=== PATIENT | female | born 1975 | race Caucasian/White ===

== ENCOUNTER 2016-04-30 23:37 | Emergency (ER) | payer MEDICARE, OTHER ==
[2016-04-30] MEDS ORDERED: ASPIRIN 81 MG CHEW PO STA (23:43)
[2016-05-01 00:09] LABS: Basophils % (A) 1 %; CH 24.3; CHCM 31.1; Eosinophils # (A) 0.1 k/uL (0-0.7); Eosinophils % (A) 2 %; HCT 32.5 % (34.0-46.0); HDW 3.42; HGB 10.2 gm/dL (11.4-16.0); Hypochromasia Moderate; Luc # (Auto) 0.24; Luc % (Auto) 4; Lymphocytes # (A) 1.9 k/uL (1.0-4.8); Lymphocytes % (A) 31 %; MCH 24.6 pg (25.0-35.0); MCHC 31.4 g/dL (31.0-37.0); MCV 78.3 fL (80.0-100.0); Mean Platelet Volume 9.1; Monocytes # (A) 0.5 k/uL (0-1.0); Monocytes % (A) 8 %; Neutrophils # (A) 3.4 k/uL (1.3-7.7); Neutrophils % (A) 55 %; Poikilocytosis Slight; RBC 4.15 m/uL (3.80-5.40); RDW 14.9 % (11.5-15.5); WBC 6.2 k/uL (3.8-10.6); WBC (Perox) 6.42
[2016-05-01 00:17] LABS: ALT 36 U/L (9-52); AST 34 U/L (14-36); Alkaline Phosphatase 99 U/L (38-126); Amylase 30 U/L (30-110); Anion Gap 11 mmol/L; Blood Urea Nitrogen 11 mg/dL (7-17); Calcium 8.7 mg/dL (8.4-10.2); Carbon Dioxide 23 mmol/L (22-30); Chloride 107 mmol/L (98-107); Glucose 123 mg/dL (74-99); Magnesium 1.9 mg/dL (1.6-2.3); Non-African American GFR(MDRD) >60 (>60 ml/min/1.73 sqM); Sodium 141 mmol/L (137-145); Total Bilirubin 0.3 mg/dL (0.2-1.3)
[2016-05-01 00:23] LABS: INR 1.2 (<1.1); Partial Thromboplastin Time 23.3 sec (22.0-30.0); Prothrombin Time 11.5 sec (9.0-12.0)
[2016-05-01 00:29] LABS: Creatine Kinase 32 U/L (30-135)
--- NOTE | 2016-05-01 00:39 | XR ---
EXAM: XR Chest, 1 View. CLINICAL HISTORY: Reason: chest pain TECHNIQUE: Frontal view of the chest. COMPARISON: Comparison to 07/08/15. FINDINGS: Limitations: Overlying chest leads obscure portion of the upper chest Lungs: Patient's chin partly obscures the right lung apex. Pleural space: Unremarkable. No pneumothorax. Heart: Upper limits of normal cardiovascular silhouette likely accentuated by technique. Mediastinum: Unremarkable. Bones/joints: Unremarkable. Vasculature: Slight prominence of the central vasculature likely mild congestion. IMPRESSION: Suspect mild congestion. Upper limits of normal cardiovascular silhouette.
[2016-05-01 00:42] LABS: Creatine Kinase MB <0.2 ng/mL (0.0-2.4); Troponin I <0.012 ng/mL (0.000-0.034)
[2016-05-01] MEDS ORDERED: HYDROcodone/APAP 5-325MG 1 EACH TAB PO STA (00:49)
--- NOTE | 2016-05-01 02:09 | ED ---
Chest Pain HPI - General Chief Complaint: Chest Pain Stated Complaint: Chest Pain Time Seen by Provider: 04/30/16 23:40 Source: patient, EMS Mode of arrival: ambulatory Limitations: no limitations - History of Present Illness MD Complaint: chest pain -: hour(s) Onset: during rest Pain Location: substernal, epigastric Pain Radiation: none Severity: moderate Quality: tightness Consistency: constant Improves With: nothing Worsens With: nothing Treatments Prior to Arrival: none - Related Data Home Medications Medication Instructions Recorded Confirmed FLUoxetine HCL [PROzac] 40 mg PO DAILY 07/08/15 05/01/16 Lurasidone HCl [Latuda] 120 mg PO HS 07/08/15 04/30/16 Propranolol LA [Inderal LA] 120 mg PO DAILY 07/08/15 05/01/16 Ranitidine HCl [Zantac] 150 mg PO BID 07/08/15 05/01/16 Simvastatin [Zocor] 20 mg PO HS 07/08/15 05/01/16 metFORMIN HCL [Glucophage] 500 mg PO BID 07/08/15 05/01/16 rOPINIRole HCL [Requip] 1 mg PO HS 07/08/15 04/30/16 traZODone HCL [Desyrel] 200 mg PO HS 07/08/15 04/30/16 Cholecalciferol [Vitamin D3] 400 unit PO DAILY@1200 04/30/16 05/01/16 Dicyclomine [Bentyl] 20 mg PO QID 04/30/16 05/01/16 Promethazine [Phenergan] 25 mg PO Q6HR 04/30/16 05/01/16 diphenhydrAMINE [Benadryl] 25 mg PO BID PRN 04/30/16 04/30/16 Allergies Allergy/AdvReac Type Severity Reaction Status Date / Time sulfamethoxazole Allergy Rash/Hives Verified 04/30/16 23:43 [From Bactrim] trimethoprim [From Bactrim] Allergy Rash/Hives Verified 04/30/16 23:43 ibuprofen [From Motrin] AdvReac Gastric Verified 04/30/16 23:43 Bypass Surgery Review of Systems ROS Statement: Those systems with pertinent positive or pertinent negative responses have been documented in the HPI. ROS Other: All systems not noted in ROS Statement are negative. Constitutional: Denies: fever, chills Respiratory: Denies: cough, dyspnea, wheezes Cardiovascular: Reports: chest pain. Denies: palpitations, dyspnea on exertion , orthopnea, edema, syncope Gastrointestinal: Reports: abdominal pain. Denies: nausea, vomiting, melena, hematochezia Genitourinary: Denies: dysuria, hematuria Musculoskeletal: Denies: back pain Skin: Denies: rash Neurological: Denies: headache, weakness, numbness EKG Findings - EKG Results: EKG: interpreted by ANTHONY DESIR, sinus rhythm (Rate 63 bpm), normal axis, normal QRS, normal ST/T, no acute changes Past Medical History Past Medical History: Diabetes Mellitus, Hyperlipidemia, Hypertension Additional Past Medical History / Comment(s): abd pain, gastritis History of Any Multi-Drug Resistant Organisms: MRSA Date of last positivie culture/infection: 2011 in abdominal incision from RYGB MDRO Source:: patient Past Surgical History: Section, Cholecystectomy, Hysterectomy, Orthopedic Surgery, Tonsillectomy, Tubal Ligation Additional Past Surgical History / Comment(s): knee replacement bilateral, gastric bypass, bilateral carpal tunnel surgery Past Anesthesia/Blood Transfusion Reactions: No Reported Reaction Past Psychological History: Anxiety, Bipolar, Depression Smoking Status: Never smoker Past Alcohol Use History: None Reported Past Drug Use History: None Reported - Past Family History Father Family Medical History: Unable to Obtain General Exam Limitations: no limitations General appearance: alert, in no apparent distress, obese Head exam: Present: atraumatic, normocephalic Eye exam: Present: normal appearance. Absent: scleral icterus, conjunctival injection Neck exam: Present: normal inspection Respiratory exam: Present: normal lung sounds bilaterally. Absent: respiratory distress, wheezes, rales, rhonchi, stridor Cardiovascular Exam: Present: regular rate, normal rhythm, normal heart sounds. Absent: systolic murmur, diastolic murmur, rubs, gallop GI/Abdominal exam: Present: soft, tenderness (There is mild epigastric tenderness, no rebound or guarding). Absent: distended, guarding, rebound, mass Extremities exam: Present: normal inspection, normal capillary refill. Absent: pedal edema, calf tenderness Back exam: Present: normal inspection. Absent: CVA tenderness (R), CVA tenderness (L) Neurological exam: Present: alert Skin exam: Present: warm, dry, intact, normal color. Absent: rash, cyanosis, diaphoretic, erythema, petechiae, pallor, mottled Course Vital Signs 04/30/16 23:41 Temperature 98.8 F Pulse Rate 64 Respiratory 20 Rate Blood Pressure 140/87 O2 Sat by Pulse 99 Oximetry Disposition Clinical Impression: Chest pain Disposition: HOME SELF-CARE Condition: Good Instructions: Chest Pain (ED) Referrals: None,Stated [Primary Care Provider] - 1-2 days
[2016-05-01 02:23] VITALS: BP 129/78; PULSE 66; RESP 18; TEMP 97.8
== END 2016-05-01 02:23 | disposition home or self-care (01) ==
LOC: EC 23:37
DX: R07.9 Chest pain, unspecified (principal); R10.13 Epigastric pain; I10 Essential (primary) hypertension; E78.5 Hyperlipidemia, unspecified; E11.9 Type 2 diabetes mellitus without complications; F31.9 Bipolar disorder, unspecified; F41.9 Anxiety disorder, unspecified; Z79.84 Long term (current) use of oral hypoglycemic drugs; Z79.899 Other long term (current) drug therapy; Z88.1 Allergy status to other antibiotic agents; Z88.2 Allergy status to sulfonamides; Z86.14 Personal history of Methicillin resistant Staphylococcus aureus infection; Z87.19 Personal history of other diseases of the digestive system
CPT/HCPCS: 36415; 71010; 80053; 82150; 82550; 82553; 83690; 83735; 84484; 85025; 85379; 85610; 85730; 93005; 99285

== ENCOUNTER 2020-08-12 02:02 | Observation (INO) | payer MEDICARE, OTHER ==
[2020-08-12 02:12] LABS: Glucose,Whole Blood 251 mg/dL (75-99)
[2020-08-12] MEDS ORDERED: SODIUM CHLORIDE 0.9% 1,000 ML IV STA (02:14)
--- NOTE | 2020-08-12 02:26 | ED ---
Chest Pain HPI - General Chief Complaint: Chest Pain Stated Complaint: Chest pain Time Seen by Provider: 08/12/20 02:07 Source: patient Mode of arrival: ambulatory Limitations: no limitations - History of Present Illness MD Complaint: chest pain Onset/Timin -: hour(s) Onset: during rest Pain Location: substernal, left chest Pain Radiation: LUE Severity: mild Quality: sharp Consistency: constant Improves With: nothing Worsens With: nothing Treatments Prior to Arrival: none - Related Data Home Medications Medication Instructions Recorded Confirmed Lurasidone HCl [Latuda] 120 mg PO HS 07/08/15 08/12/20 rOPINIRole HCL [Requip] 1 mg PO HS 07/08/15 08/12/20 traZODone HCL [Desyrel] 100 mg PO HS 07/08/15 08/12/20 diphenhydrAMINE [Benadryl] 50 mg PO BID 04/30/16 08/12/20 DULoxetine HCL [Cymbalta] 60 mg PO DAILY 08/12/20 08/12/20 Empagliflozin [Jardiance] 25 mg PO DAILY 08/12/20 08/12/20 Fexofenadine HCl [Kandi Allergy] 180 mg PO DAILY 08/12/20 08/12/20 Insulin Degludec [Tresiba 35 units SQ HS 08/12/20 08/12/20 Flextouch U-100] Isosorbide Mononitrate ER [Imdur] 30 mg PO DAILY 08/12/20 08/12/20 Levothyroxine Sodium [Synthroid] 50 mcg PO DAILY 08/12/20 08/12/20 Ozempic 2mg/1.5ml 0.5 mg SQ 08/12/20 08/12/20 Pantoprazole Sodium [Protonix] 40 mg PO DAILY 08/12/20 08/12/20 Pregabalin [Lyrica] 150 mg PO BID 08/12/20 08/12/20 Simvastatin [Zocor] 40 mg PO HS 08/12/20 08/12/20 Topiramate [Topamax] 75 mg PO BID 08/12/20 08/12/20 busPIRone HCL [Buspar] 10 mg PO TID 08/12/20 08/12/20 hydrOXYzine pamoate [Vistaril] 50 mg PO BID 08/12/20 08/12/20 metFORMIN HCL [metFORMIN HCL ER] 750 mg PO BID-W/MEALS 08/12/20 08/12/20 tiZANidine HCL [Zanaflex] 2 mg PO Q8H PRN 08/12/20 08/12/20 Allergies Allergy/AdvReac Type Severity Reaction Status Date / Time sulfamethoxazole Allergy Rash/Hives Verified 08/12/20 09:50 [From Bactrim] trimethoprim [From Bactrim] Allergy Rash/Hives Verified 08/12/20 09:50 ibuprofen [From Motrin] AdvReac Gastric Verified 08/12/20 09:50 Bypass Surgery Review of Systems ROS Statement: Those systems with pertinent positive or pertinent negative responses have been documented in the HPI. ROS Other: All systems not noted in ROS Statement are negative. Constitutional: Denies: fever, chills Respiratory: Denies: cough, dyspnea, wheezes, hemoptysis Cardiovascular: Reports: chest pain. Denies: palpitations, orthopnea, edema, syncope Gastrointestinal: Denies: abdominal pain, nausea, vomiting, diarrhea Genitourinary: Denies: dysuria, hematuria Musculoskeletal: Denies: back pain Skin: Denies: rash Neurological: Denies: headache, weakness Psychiatric: Reports: anxiety EKG Findings - EKG Results: EKG: interpreted by KARLEE, sinus rhythm (Rate 97 bpm), normal axis, normal QRS, normal ST/T Past Medical History Past Medical History: Heart Failure, Diabetes Mellitus, Hyperlipidemia, Hypertension Additional Past Medical History / Comment(s): abd pain, gastritis History of Any Multi-Drug Resistant Organisms: MRSA Date of last positivie culture/infection: 2011 in abdominal incision from RYGB MDRO Source:: patient Past Surgical History: Section, Cholecystectomy, Hysterectomy, Orthopedic Surgery, Tonsillectomy, Tubal Ligation Additional Past Surgical History / Comment(s): knee replacement bilateral, gastric bypass, bilateral carpal tunnel surgery Past Anesthesia/Blood Transfusion Reactions: No Reported Reaction Past Psychological History: Anxiety, Bipolar, Depression Smoking Status: Never smoker Past Alcohol Use History: None Reported Past Drug Use History: None Reported - Past Family History Father Family Medical History: Unable to Obtain General Exam Limitations: no limitations General appearance: alert, in no apparent distress Head exam: Present: atraumatic, normocephalic Eye exam: Present: normal appearance. Absent: scleral icterus, conjunctival injection ENT exam: Present: normal oropharynx Neck exam: Present: normal inspection Respiratory exam: Present: normal lung sounds bilaterally. Absent: respiratory distress, wheezes, rales, rhonchi, stridor Cardiovascular Exam: Present: regular rate, normal rhythm, normal heart sounds. Absent: systolic murmur, diastolic murmur, rubs, gallop GI/Abdominal exam: Present: soft. Absent: distended, tenderness, guarding, rebound, rigid, mass Extremities exam: Present: normal inspection, normal capillary refill. Absent: pedal edema, calf tenderness Back exam: Present: normal inspection. Absent: CVA tenderness (R), CVA tenderness (L) Neurological exam: Present: alert Skin exam: Present: warm, dry, intact, normal color. Absent: rash Course Vital Signs 08/12/20 08/12/20 08/12/20 02:08 05:00 09:25 Temperature 98.7 F 98.2 F Pulse Rate 97 85 82 Respiratory 18 18 18 Rate Blood Pressure 123/59 130/90 126/90 O2 Sat by Pulse 98 97 97 Oximetry 08/12/20 08/12/20 14:39 17:58 Temperature Pulse Rate 80 66 Respiratory 18 18 Rate Blood Pressure 135/88 126/95 O2 Sat by Pulse 98 99 Oximetry Disposition Clinical Impression: Chest pain, Hyperglycemia Disposition: ADMITTED IP TO THIS HOSP Condition: Good Is patient prescribed a controlled substance at d/c from ED?: No
[2020-08-12 02:37] LABS: Anisocytosis Slight; Basophils # (A) 0.1 k/uL (0-0.2); Basophils % (A) 1 %; Eosinophils # (A) 0.3 k/uL (0-0.7); Eosinophils % (A) 3 %; HGB 12.1 gm/dL (11.4-16.0); Hypochromasia Moderate; Lymphocytes # (A) 2.1 k/uL (1.0-4.8); Lymphocytes % (A) 25 %; MCH 23.5 pg (25.0-35.0); MCHC 31.7 g/dL (31.0-37.0); MCV 74.1 fL (80.0-100.0); Microcytosis Moderate; Monocytes # (A) 0.7 k/uL (0-1.0); Monocytes % (A) 8 %; Neutrophils # (A) 5.2 k/uL (1.3-7.7); Neutrophils % (A) 61 %; Platelet Count 289 k/uL (150-450); Poikilocytosis Slight; RBC 5.13 m/uL (3.80-5.40); RDW 18.6 % (11.5-15.5); WBC 8.6 k/uL (3.8-10.6)
[2020-08-12 02:47] LABS: Albumin 4.4 g/dL (3.5-5.0); Calcium 9.5 mg/dL (8.4-10.2); Magnesium 1.6 mg/dL (1.6-2.3); Potassium 3.6 mmol/L (3.5-5.1); Total Bilirubin 0.2 mg/dL (0.2-1.3); Total Protein 7.6 g/dL (6.3-8.2)
[2020-08-12 03:26] LABS: Partial Thromboplastin Time 22.2 sec (22.0-30.0); Prothrombin Time 10.8 sec (9.0-12.0)
--- NOTE | 2020-08-12 03:39 | XR ---
EXAM: XR Chest, 2 Views CLINICAL HISTORY: ITS.REASON XR Reason: Chest Pain TECHNIQUE: Frontal and lateral views of the chest. COMPARISON: 05/01/2016) FINDINGS: Lungs: Subtle increased density posteriorly on the lateral projection is not clearly evident on the frontal projection. The lungs are otherwise clear. The pulmonary vasculature demonstrates no significant radiographic abnormality. Pleural space: Unremarkable. No pneumothorax. No large pleural effusion. Heart: Unremarkable. No cardiomegaly. Mediastinum: Unremarkable. No significant abnormality identified. The trachea is midline. Bones/joints: Unremarkable. IMPRESSION: Subtle increased density posteriorly on the lateral projection is not clearly evident on the frontal projection. Suspect right basilar atelectasis or subtle infection. No pleural effusion or pneumothorax.
[2020-08-12] MEDS ORDERED: SODIUM CHLORIDE 0.9% 500 ML 500 ML IV STA (03:41)
[2020-08-12] MEDS ORDERED: INSULIN REGULAR 100 UNIT/ML VIAL (IV) SQ STA (03:41)
[2020-08-12] MEDS ORDERED: HYDROcodone/APAP 5-325MG 1 EACH TAB PO STA (03:42)
[2020-08-12] MEDS ORDERED: MORPHINE SULFATE 4 MG/ML SYRINGE IV STA (05:03)
[2020-08-12] MEDS ORDERED: NITROGLYCERIN SL TABS 0.4 MG TAB SUBLINGUAL PRN (06:16)
[2020-08-12] MEDS: SODIUM CHLORIDE 0.9% 1,000 ML IV SCH (06:52)
[2020-08-12] MEDS ORDERED: FAMOTIDINE 20 MG/2 ML VIAL IV SCH (09:00)
[2020-08-12] MEDS: PROPRANOLOL LA 60 MG CAP.SA.24H PO SCH (09:24)
[2020-08-12] MEDS: metFORMIN 500 MG TAB PO SCH ×2 (09:24→18:05)
[2020-08-12] MEDS: FLUoxetine HCL 20 MG CAP PO SCH (09:24)
[2020-08-12] MEDS: HEPARIN SODIUM,PORCINE/PF 5,000 UNIT/0.5 ML SYRINGE SQ SCH ×2 (09:24→22:14)
[2020-08-12] MEDS: DICYCLOMINE 20 MG TAB PO SCH ×4 (09:24→22:15)
[2020-08-12] MEDS: HYDROcodone/APAP 5-325MG 1 EACH TAB PO PRN ×3 (13:37→22:15)
[2020-08-12] MEDS: PROMETHAZINE 25 MG TAB PO SCH ×2 (13:38→18:06)
[2020-08-12] MEDS: CHOLECALCIFEROL 10 MCG (400 IU) TABLET PO SCH (13:38)
[2020-08-12 13:43] LABS: Glucose,Whole Blood 250 mg/dL (75-99)
[2020-08-12] MEDS ORDERED: tiZANidine 4 MG TAB PO PRN (14:59)
[2020-08-12] MEDS ORDERED: OZEMPIC SQ SCH (15:00)
--- NOTE | 2020-08-12 15:06 | P.HPIM ---
History of Present Illness 45-year-old female came in with complaints of severe 9/10 substernal and left- sided pressure-like and sharp chest pain started today morning continues to have chest pain without any aggravating relieving factors patient was complaining of lightheadedness as well as nausea. Patient denied any fever chills patient chest pain is radiating to the left arm. Patient just pain is non-micturitional not associated with food, nonpleuritic in nature. Patient EKG showed sinus rhythm troponins were negative. Patient had a stress test 2 years ago which was within normal limits. Patient denied any family history of coronary artery dise ase in first-degree family members but her grandfather did have myocardial infarction his 50s Review of Systems REVIEW OF SYSTEMS: CONSTITUTIONAL: No fever, no malaise, no fatigue. HEENT: No recent visual problems or hearing problems. Denied any sore throat. CARDIOVASCULAR: No orthopnea, PND, no palpitations, no syncope. PULMONARY: No shortness of breath, no cough, no hemoptysis. GASTROINTESTINAL: No diarrhea, no nausea, no vomiting, no abdominal pain. NEUROLOGICAL: No headaches, no weakness, no numbness. HEMATOLOGICAL: Denies any bleeding or petechiae. GENITOURINARY: Denies any burning micturition, frequency, or urgency. MUSCULOSKELETAL/RHEUMATOLOGICAL: Denies any joint pain, swelling, or any muscle pain. ENDOCRINE: Denies any polyuria or polydipsia. The rest of the 14-point review of systems is negative. Past Medical History Past Medical History: Heart Failure, Diabetes Mellitus, Hyperlipidemia, Hypert ension Additional Past Medical History / Comment(s): abd pain, gastritis History of Any Multi-Drug Resistant Organisms: MRSA Date of last positivie culture/infection: 2011 in abdominal incision from RYGB MDRO Source:: patient Past Surgical History: Section, Cholecystectomy, Hysterectomy, Orthopedic Surgery, Tonsillectomy, Tubal Ligation Additional Past Surgical History / Comment(s): knee replacement bilateral, gastric bypass, bilateral carpal tunnel surgery Past Anesthesia/Blood Transfusion Reactions: No Reported Reaction Past Psychological History: Anxiety, Bipolar, Depression Smoking Status: Never smoker Past Alcohol Use History: None Reported Past Drug Use History: None Reported - Past Family History Father Family Medical History: Unable to Obtain Medications and Allergies Home Medications Medication Instructions Recorded Confirmed Type Lurasidone HCl [Latuda] 120 mg PO HS 07/08/15 08/12/20 History rOPINIRole HCL [Requip] 1 mg PO HS 07/08/15 08/12/20 History traZODone HCL [Desyrel] 100 mg PO HS 07/08/15 08/12/20 History diphenhydrAMINE [Benadryl] 50 mg PO BID 04/30/16 08/12/20 History DULoxetine HCL [Cymbalta] 60 mg PO DAILY 08/12/20 08/12/20 History Empagliflozin [Jardiance] 25 mg PO DAILY 08/12/20 08/12/20 History Fexofenadine HCl [Kandi Allergy] 180 mg PO DAILY 08/12/20 08/12/20 History Insulin Degludec [Tresiba 35 units SQ HS 08/12/20 08/12/20 History Flextouch U-100] Isosorbide Mononitrate ER [Imdur] 30 mg PO DAILY 08/12/20 08/12/20 History Levothyroxine Sodium [Synthroid] 50 mcg PO DAILY 08/12/20 08/12/20 History Ozempic 2mg/1.5ml 0.5 mg SQ SA 08/12/20 08/12/20 History Pantoprazole Sodium [Protonix] 40 mg PO DAILY 08/12/20 08/12/20 History Pregabalin [Lyrica] 150 mg PO BID 08/12/20 08/12/20 History Simvastatin [Zocor] 40 mg PO HS 08/12/20 08/12/20 History Topiramate [Topamax] 75 mg PO BID 08/12/20 08/12/20 History busPIRone HCL [Buspar] 10 mg PO TID 08/12/20 08/12/20 History hydrOXYzine pamoate [Vistaril] 50 mg PO BID 08/12/20 08/12/20 History metFORMIN HCL [metFORMIN HCL ER] 750 mg PO BID-W/MEALS 08/12/20 08/12/20 History tiZANidine HCL [Zanaflex] 2 mg PO Q8H PRN 08/12/20 08/12/20 History Allergies Allergy/AdvReac Type Severity Reaction Status Date / Time sulfamethoxazole Allergy Rash/Hives Verified 08/12/20 09:50 [From Bactrim] trimethoprim [From Bactrim] Allergy Rash/Hives Verified 08/12/20 09:50 ibuprofen [From Motrin] AdvReac Gastric Verified 08/12/20 09:50 Bypass Surgery Physical Exam Vitals: Vital Signs Temp Pulse Resp BP Pulse Ox 08/12/20 14:39 80 18 135/88 98 08/12/20 09:25 98.2 F 82 18 126/90 97 08/12/20 05:00 85 18 130/90 97 08/12/20 02:08 98.7 F 97 18 123/59 98 Intake and Output 08/11/20 08/12/20 08/12/20 22:59 06:59 14:59 Other: Weight 151.5 kg PHYSICAL EXAMINATION: GENERAL: The patient is alert and oriented x3, not in any acute distress. Obese HEENT: Pupils are round and equally reacting to light. EOMI. No scleral icterus. No conjunctival pallor. Normocephalic, atraumatic. No pharyngeal erythema. No thyromegaly. CARDIOVASCULAR: S1 and S2 present. No murmurs, rubs, or gallops. PULMONARY: Chest is clear to auscultation, no wheezing or crackles. ABDOMEN: Soft, nontender, nondistended, normoactive bowel sounds. No palpable organomegaly. MUSCULOSKELETAL: No joint swelling or deformity. EXTREMITIES: No cyanosis, clubbing, or pedal edema. NEUROLOGICAL: Gross neurological examination did not reveal any focal deficits. SKIN: No rashes. Results CBC & Chem 7: 08/12/20 02:28 08/12/20 02:28 Labs: Abnormal Lab Results - Last 24 Hours (Table) 08/12/20 08/12/20 08/12/20 Range/Units 02:10 02:28 02:28 MCV 74.1 L (80.0-100.0) fL MCH 23.5 L (25.0-35.0) pg RDW 18.6 H (11.5-15.5) % Glucose 247 H (74-99) mg/dL POC Glucose (mg/dL) 251 H (75-99) mg/dL Alkaline Phosphatase 130 H (38-126) U/L 08/12/20 Range/Units 13:41 MCV (80.0-100.0) fL MCH (25.0-35.0) pg RDW (11.5-15.5) % Glucose (74-99) mg/dL POC Glucose (mg/dL) 250 H (75-99) mg/dL Alkaline Phosphatase (38-126) U/L Assessment and Plan Plan: Chest pain: We'll rule out acute coronary syndromes cardiology evaluated the patient. It appears that she would undergo stress test on Friday. -Type 2 diabetes mellitus: Patient will be resumed on home regimen along with sliding scale hold off on metformin - hyperlipidemia -Hypertension -Depression and bipolar disorder -Diabetic peripheral neuropathy -Obesity -Gastroesophageal reflux disease
--- NOTE | 2020-08-12 15:59 | CONS ---
CONSULTATION Mrs. Swanson is a 45-year-old female who moved back to our area from [place], has a history of diabetes mellitus, history of hyperlipidemia, who presented with chest discomfort that occurred at rest, started yesterday and has persisted. The discomfort has traveled to her arms. In 2014 while in [place] she underwent a stress test and subsequent cardiac catheterization and was told that there is no evidence of obstructive coronary artery disease. She was here in 2016 and at that time had a stress test that was nondiagnostic. The patient is not active physically. Has exertional dyspnea on exertion. She has not been smoking since her 20s. She denies any palpitation. No syncope. No clear PND or orthopnea. Her coronary risk factors are remarkable for borderline hypertension, hyperlipidemia, diabetes, MEDICATION: Include Jardiance, Requip, Desyrel, BuSpar, Vistaril, Topamax, simvastatin 40 mg daily, Cymbalta, metformin 750 mg twice a day, isosorbide mononitrate 30 mg daily, Lyrica, Latuda and Synthroid. REVIEW OF SYSTEMS: RESPIRATORY SYSTEM: She has dyspnea on exertion. No recent wheezing or cough. GI SYSTEM: No recent GI bleeding. No peptic ulcer disease. SYSTEM: No dysuria or hematuria. NERVOUS SYSTEM: No history of stroke or seizure. PHYSICAL EXAMINATION: GENERAL: She is a 45-year-old female, alert, oriented, no apparent distress, obese. VITAL SIGNS: Blood pressure 126/90 with a heart rate in the 80s. HEAD: Normocephalic. Eyes sclerae anicteric. NECK: Good carotid upstroke, no bruit, no jugular venous distention. LUNGS: Clear to auscultation. HEART: Regular rate and rhythm S1, S2. No S3. No S4. No rub. ABDOMEN: Soft and nontender. Positive bowel sounds. No organomegaly. EXTREMITIES: No edema. Intact pulses. LAB DATA: Lab data revealed troponin less than 0.012. BUN and creatinine 7 and 0.92, potassium 3.6, hemoglobin of 12.1. IMPRESSION: 1. Chest discomfort of unclear etiology. No evidence of acute coronary artery syndrome. 2. History of diabetes mellitus. 3. History of hyperlipidemia. 4. Borderline hypertension. 5. Obesity. RECOMMENDATION: From the cardiac standpoint, I will obtain echocardiogram with Doppler to evaluate left ventricular systolic function and depending on her progress, we may proceed with a dobutamine stress echocardiogram to further assess her status and guide her treatment. Thank you for this consult. We will follow with you. JANIEL / IJN: [id number] /
[2020-08-12] MEDS: busPIRone HCl 10 MG TAB PO SCH ×2 (18:05→22:16)
[2020-08-12 19:59] LABS: Glucose,Whole Blood 171 mg/dL (75-99)
[2020-08-12] MEDS ORDERED: ATORVASTATIN 10 MG TAB PO SCH (21:00)
[2020-08-12] MEDS: INSULIN DETEMIR (LEVEMIR) 100 UNIT/ML SYR SQ SCH (21:29)
[2020-08-12] MEDS: TOPIRAMATE 25 MG TAB PO SCH (21:30)
[2020-08-12] MEDS: traZODone HCL 100 MG TAB PO SCH (21:30)
[2020-08-12] MEDS: PREGABALIN 75 MG CAP PO SCH (22:15)
[2020-08-12] MEDS: FAMOTIDINE 20 MG TAB PO SCH (22:16)
[2020-08-12] MEDS: ATORVASTATIN 20 MG TAB PO SCH (22:16)
[2020-08-12 22:52] LABS: Glucose,Whole Blood 193 mg/dL (75-99)
[2020-08-12] MEDS ORDERED: MORPHINE SULFATE 4 MG/ML SYRINGE IVP STA (23:40)
[2020-08-12 23:42] LABS: Chol/HDL Ratio 5.03
[2020-08-13] MEDS: LURASIDONE 40 MG TAB PO SCH ×2 (00:02→21:44)
[2020-08-13] MEDS: PROMETHAZINE 25 MG TAB PO SCH ×5 (00:57→23:20)
[2020-08-13] MEDS: HYDROcodone/APAP 5-325MG 1 EACH TAB PO PRN ×5 (02:22→23:20)
[2020-08-13] MEDS: LEVOTHYROXINE 50 MCG TAB PO SCH (06:05)
[2020-08-13 07:22] LABS: Glucose,Whole Blood 178 mg/dL (75-99)
[2020-08-13] MEDS: SODIUM CHLORIDE 0.9% 1,000 ML IV SCH (07:37)
[2020-08-13 07:42] LABS: Potassium 3.9 mmol/L (3.5-5.1)
[2020-08-13 07:43] LABS: African American GFR (CKD) >90 (>60 ml/min/1.73 sqM); Anion Gap 6 mmol/L; Blood Urea Nitrogen 8 mg/dL (7-17); Calcium 8.6 mg/dL (8.4-10.2); Carbon Dioxide 24 mmol/L (22-30); Chloride 109 mmol/L (98-107); Glucose 161 mg/dL (74-99); Non-African American GFR(CKD) >90 (>60 ml/min/1.73 sqM); Sodium 139 mmol/L (137-145)
[2020-08-13] MEDS: ENOXAPARIN 40 MG/0.4 ML SYRINGE SQ SCH (07:50)
[2020-08-13] MEDS: PROPRANOLOL LA 60 MG CAP.SA.24H PO SCH (07:50)
[2020-08-13] MEDS: CHOLECALCIFEROL 10 MCG (400 IU) TABLET PO SCH (07:50)
[2020-08-13] MEDS: LORATADINE 10 MG TAB PO SCH (07:51)
[2020-08-13] MEDS: ASPIRIN 325 MG TAB PO SCH (07:51)
[2020-08-13] MEDS: DULoxetine HCL 60 MG CAPSULE.DR PO SCH (07:52)
[2020-08-13] MEDS: DICYCLOMINE 20 MG TAB PO SCH ×4 (07:52→21:44)
[2020-08-13] MEDS: FAMOTIDINE 20 MG TAB PO SCH (07:52)
[2020-08-13] MEDS: ISOSORBIDE MONONITRATE ER 30 MG TAB.ER.24H PO SCH (07:52)
[2020-08-13] MEDS: PANTOPRAZOLE 40 MG TABLET PO SCH (07:52)
[2020-08-13] MEDS: FLUoxetine HCL 20 MG CAP PO SCH (07:53)
[2020-08-13] MEDS: PREGABALIN 75 MG CAP PO SCH ×2 (07:53→21:44)
[2020-08-13] MEDS: busPIRone HCl 10 MG TAB PO SCH ×3 (07:53→21:44)
[2020-08-13] MEDS: TOPIRAMATE 25 MG TAB PO SCH ×2 (07:53→21:44)
[2020-08-13] MEDS: metFORMIN 500 MG TAB PO SCH ×2 (07:53→17:14)
[2020-08-13] MEDS: NON FORMULARY DRUG (Empagliflozin [Jardiance] 25 MG Tablet) PO SCH (07:54)
--- NOTE | 2020-08-13 11:08 | P.PN ---
Subjective Progress Note Date: 08/13/20 This is a pleasant 45-year-old female who recently moved back to this area from [place]. She has a history of diabetes, hyperlipidemia. She presented with chest discomfort that occurred at rest. It started on 08/11/2020 and has persisted. The discomfort has traveled into her back and her arms. Patient does have a history of a stress test in the past in 2014 at which time she subsequently underwent cardiac catheterization and was told that there was no evidence of obstructive CAD. She was here in 2016 and at that time had a stress test that was nondiagnostic. She is not very active physically. She has exertional dyspnea. She quit smoking in her 20s. Chest x-ray on admission showed subtle increased density posteriorly on the lateral projection that is not clearly evident on the frontal projection, suspect right basilar atelectasis or subtle infection, no pleural effusion or pneumothorax. EKG on admission showed baseline artifact but no clear evidence of ischemic changes. Opponens are negative 3. Lipids show triglycerides 424 and total cholesterol 201, LDL was not calculated due to elevated triglycerides. Patient was seen and examined this morning resting comfortably in bed. She does not appear to have any obvious signs of distress. She continues to complain of chest back and arm discomfort that is constant. She also complains of some mild nausea at times. Also complaining of some palpitations. She denies any dizziness. Complains of dyspnea on exertion. Vital signs are stable. She is currently on Lipitor 20 mg by mouth daily at bedtime, aspirin 325 mg by mouth daily, isosorbide 30 mg by mouth daily, Synthroid, Levemir, Lovenox, Cymbalta, metformin, Latuda, Jardiance, Ozempic, Protonix, Inderal, Topamax, Desyrel, Royal and Zanaflex. She is asking for pain medication "stronger than Royal". Objective - Vital Signs Vital signs: Vital Signs Temp 97.7 F 08/13/20 08:36 Pulse 59 L 08/13/20 08:36 Resp 18 08/13/20 08:36 BP 98/64 08/13/20 08:36 Pulse Ox 96 08/13/20 08:36 Intake & Output 08/12/20 08/13/20 08/13/20 18:59 06:59 18:59 Weight 151.5 kg Other: Voiding Method Toilet Toilet # Voids 3 - Exam PHYSICAL EXAMINATION: HEENT: Head is atraumatic, normocephalic. Pupils equal, round. Neck is supple. There is no elevated jugular venous pressure. HEART EXAMINATION: Heart sounds regular, S1 and S2 normal. No murmur or gallop heard. CHEST EXAMINATION: Lungs are clear to auscultation and precussion. No chest wall tenderness is noted on palpation or with deep breathing. ABDOMEN: Soft, obese, nontender. Bowel sounds are heard. No organomegaly noted. EXTREMITIES: 2+ peripheral pulses with no evidence of peripheral edema and no calf tenderness noted. NEUROLOGIC patient is awake, alert and oriented x3. . - Labs CBC & Chem 7: 08/12/20 02:28 08/13/20 06:50 Labs: Abnormal Lab Results - Last 24 Hours (Table) 08/12/20 08/12/20 08/12/20 Range/Units 02:28 13:41 19:58 Chloride (98-107) mmol/L Glucose (74-99) mg/dL POC Glucose (mg/dL) 250 H 171 H (75-99) mg/dL Triglycerides 424.0 H (0.0-149.0) mg/dL Cholesterol 201 H (0-200) mg/dL 08/12/20 08/13/20 08/13/20 Range/Units 22:50 06:50 07:20 Chloride 109 H (98-107) mmol/L Glucose 161 H (74-99) mg/dL POC Glucose (mg/dL) 193 H 178 H (75-99) mg/dL Triglycerides (0.0-149.0) mg/dL Cholesterol (0-200) mg/dL Assessment and Plan Assessment: 1 chest discomfort of unclear etiology, no evidence of acute coronary syndrome #2 history of diabetes mellitus #3 dyslipidemia #4 borderline hypertension #5 obesity Plan: From cardiology's perspective will obtain a 2-D echo with Doppler to assess cardiac structure and function as well as a dobutamine stress echocardiogram to further assess for underlying ischemia. Further recommendations to follow. DRUPAL PROGRAMMER note has been reviewed, I agree with a documented findings and plan of care. Patient was seen and examined.
[2020-08-13 11:39] LABS: Glucose,Whole Blood 247 mg/dL (75-99)
--- NOTE | 2020-08-13 12:25 | P.PN ---
Subjective Patient given with chest pain. Will undergo stress test tomorrow still complaining of chest pain. Constitutional: Denied any fatigue denied any fever. Cardio vascular: As mentioned in the interval history Gastrointestinal denied any nausea vomiting Pulmonary: Denied any shortness of breath cough Neurologic denied any new focal deficits All inpatient medications were reviewed and appropriate changes in these medications as dictated in the interval history and assessment and plan. Objective - Vital Signs Vital signs: Vital Signs Temp 97.7 F 08/13/20 08:36 Pulse 59 L 08/13/20 08:36 Resp 18 08/13/20 08:36 BP 98/64 08/13/20 08:36 Pulse Ox 96 08/13/20 08:36 Intake & Output 08/12/20 08/13/20 08/13/20 18:59 06:59 18:59 Weight 151.5 kg Other: Voiding Method Toilet Toilet # Voids 3 - Exam PHYSICAL EXAMINATION: GENERAL: The patient is alert and oriented x3, not in any acute distress. Obese HEENT: Pupils are round and equally reacting to light. EOMI. No scleral icterus. No conjunctival pallor. Normocephalic, atraumatic. No pharyngeal erythema. No thyromegaly. CARDIOVASCULAR: S1 and S2 present. No murmurs, rubs, or gallops. PULMONARY: Chest is clear to auscultation, no wheezing or crackles. ABDOMEN: Soft, nontender, nondistended, normoactive bowel sounds. No palpable organomegaly. MUSCULOSKELETAL: No joint swelling or deformity. EXTREMITIES: No cyanosis, clubbing, or pedal edema. NEUROLOGICAL: Gross neurological examination did not reveal any focal deficits. SKIN: No rashes. - Labs CBC & Chem 7: 08/12/20 02:28 08/13/20 06:50 Labs: Abnormal Lab Results - Last 24 Hours (Table) 08/12/20 08/12/20 08/12/20 Range/Units 02:28 13:41 19:58 Chloride (98-107) mmol/L Glucose (74-99) mg/dL POC Glucose (mg/dL) 250 H 171 H (75-99) mg/dL Triglycerides 424.0 H (0.0-149.0) mg/dL Cholesterol 201 H (0-200) mg/dL 08/12/20 08/13/20 08/13/20 Range/Units 22:50 06:50 07:20 Chloride 109 H (98-107) mmol/L Glucose 161 H (74-99) mg/dL POC Glucose (mg/dL) 193 H 178 H (75-99) mg/dL Triglycerides (0.0-149.0) mg/dL Cholesterol (0-200) mg/dL 08/13/20 Range/Units 11:38 Chloride (98-107) mmol/L Glucose (74-99) mg/dL POC Glucose (mg/dL) 247 H (75-99) mg/dL Triglycerides (0.0-149.0) mg/dL Cholesterol (0-200) mg/dL Assessment and Plan Plan: Chest pain: We'll rule out acute coronary syndromes cardiology evaluated the patient. It appears that she would undergo stress test on Friday. -Type 2 diabetes mellitus: Patient will be resumed on home regimen along with sliding scale hold off on metformin - hyperlipidemia -Hypertension -Depression and bipolar disorder -Diabetic peripheral neuropathy -Obesity -Gastroesophageal reflux disease
[2020-08-13 12:42] LABS: Chol/HDL Ratio 5.43; LDL Cholesterol,Calculated 54.4 mg/dL (0.0-131.0); VLDL Calculation 69.6 mg/dL (5.00-40.00)
[2020-08-13 17:11] LABS: Glucose,Whole Blood 239 mg/dL (75-99)
[2020-08-13 20:23] LABS: Glucose,Whole Blood 215 mg/dL (75-99)
[2020-08-13] MEDS: traZODone HCL 100 MG TAB PO SCH (21:43)
[2020-08-13] MEDS: ATORVASTATIN 20 MG TAB PO SCH (21:43)
[2020-08-13] MEDS: INSULIN DETEMIR (LEVEMIR) 100 UNIT/ML SYR SQ SCH (21:43)
[2020-08-14 03:19] VITALS: RESP 16
[2020-08-14] MEDS: PROMETHAZINE 25 MG TAB PO SCH ×2 (05:03→12:13)
[2020-08-14] MEDS: HYDROcodone/APAP 5-325MG 1 EACH TAB PO PRN ×2 (05:07→12:28)
[2020-08-14] MEDS: LEVOTHYROXINE 50 MCG TAB PO SCH (05:30)
[2020-08-14] MEDS ORDERED: DOBUTamine DRIP for NUC MED 500 MG in DEXTROSE/WATER 1 250ML.BAG IV PRN (07:00)
[2020-08-14 07:58] LABS: Glucose,Whole Blood 163 mg/dL (75-99)
[2020-08-14 08:12] VITALS: TEMP 98.4
[2020-08-14] MEDS: NON FORMULARY DRUG (Empagliflozin [Jardiance] 25 MG Tablet) PO SCH (08:53)
[2020-08-14] MEDS: ASPIRIN 325 MG TAB PO SCH (08:59)
[2020-08-14] MEDS: DULoxetine HCL 60 MG CAPSULE.DR PO SCH (08:59)
[2020-08-14] MEDS: DICYCLOMINE 20 MG TAB PO SCH ×2 (08:59→12:27)
[2020-08-14] MEDS: busPIRone HCl 10 MG TAB PO SCH (08:59)
[2020-08-14] MEDS: FLUoxetine HCL 20 MG CAP PO SCH ×2 (09:00→09:02)
[2020-08-14] MEDS: PANTOPRAZOLE 40 MG TABLET PO SCH (09:00)
[2020-08-14] MEDS: PREGABALIN 75 MG CAP PO SCH (09:00)
[2020-08-14] MEDS: ENOXAPARIN 40 MG/0.4 ML SYRINGE SQ SCH (09:03)
[2020-08-14] MEDS: TOPIRAMATE 25 MG TAB PO SCH (09:04)
--- NOTE | 2020-08-14 10:57 | P.PN ---
Subjective This is a pleasant 45-year-old female past medical history significant for diabetes and dyslipidemia. She is seen and examined resting comfortably in no acute distress. She states overnight she did have another episode of chest discomfort that was similar in nature but much lessened in intensity. She had no shortness of breath associated with this. Blood pressure 106/68 heart rate 59 afebrile maintaining oxygen saturation on room air. Blood pressure 106/68 heart rate 59 afebrile maintaining oxygen saturation on room air. GENERAL: Well-appearing, well-nourished and in no acute distress. Obese. NECK: Supple without JVD or thyromegaly. LUNGS: Breath sounds clear to auscultation bilaterally. Respiration equal and unlabored. No wheezes, rales or rhonchi. HEART: Regular rate and rhythm without murmurs, rubs or gallops. S1 and S2 heard. EXTREMITIES: Normal range of motion, no edema. No clubbing or cyanosis. Peripheral pulses intact. ASSESSMENT Chest pain, atypical Diabetes mellitus Dyslipidemia Morbid obesity, BMI 49 PLAN Echocardiogram has been obtained and will be reviewed. Proceed with dobutamine stress echocardiogram as previously ordered. If stress test is normal she may be discharged from a cardiac perspective. Nurse Practitioner note has been reviewed, I agree with a documented findings and plan of care. Patient was seen and examined. Objective - Vital Signs Vital signs: Vital Signs Temp 98.4 F 08/14/20 07:00 Pulse 59 L 08/14/20 07:00 Resp 16 08/14/20 08:00 BP 106/68 08/14/20 07:00 Pulse Ox 97 08/14/20 07:00 Intake & Output 08/13/20 08/14/20 08/14/20 18:59 06:59 18:59 Other: Voiding Method Toilet Toilet Toilet # Voids 3 2 - Labs CBC & Chem 7: 08/12/20 02:28 08/13/20 06:50 Labs: Abnormal Lab Results - Last 24 Hours (Table) 08/13/20 08/13/20 08/13/20 Range/Units 06:50 11:38 17:10 POC Glucose (mg/dL) 247 H 239 H (75-99) mg/dL Triglycerides 348.0 H (0.0-149.0) mg/dL VLDL Cholesterol, Calc 69.60 H (5.00-40.00) mg/dL HDL Cholesterol 28.0 L (40.0-60.0) mg/dL 08/13/20 08/14/20 Range/Units 20:22 07:56 POC Glucose (mg/dL) 215 H 163 H (75-99) mg/dL Triglycerides (0.0-149.0) mg/dL VLDL Cholesterol, Calc (5.00-40.00) mg/dL HDL Cholesterol (40.0-60.0) mg/dL
[2020-08-14] MEDS ORDERED: ATROPINE SULFATE 0.1 MG/ML 10ML SYRINGE ONE (11:13)
[2020-08-14] MEDS ORDERED: METOPROLOL TARTRATE 5 MG/5 ML VIAL IVP ONE (11:13)
--- NOTE | 2020-08-14 11:14 | ECHOF ---
Referral Reason:cp MEASUREMENTS -------- HEIGHT: 175.3 cm WEIGHT: 151.5 kg BP: IVSd: 1.2 cm (0.6 - 1.1) LVIDd: 4.3 cm (3.9 - 5.3) LVPWd: 1.5 cm (0.6 - 1.1) IVSs: 1.6 cm LVIDs: 2.8 cm LVPWs: 2.0 cm LAESV Index (A-L): 27.86 ml/m Ao Diam: 3.3 cm (2.0 - 3.7) AV Cusp: 1.7 cm (1.5 - 2.6) MV EXCURSION: 17.180 mm (> 18.000) MV EF SLOPE: 141 mm/s (70 - 150) EPSS: 1.3 cm MV E Juanpablo: 0.73 m/s MV DecT: 130 ms MV A Juanpablo: 0.64 m/s MV E/A Ratio: 1.14 RAP: 5.00 mmHg RVSP: 32.13 mmHg FINDINGS -------- Sinus rhythm. This was a technically adequate study. Morbid Obesity LV size, wall thickness and systolic function are normal, with an EF greater than 55%. The left halima tricular size is normal. The right ventricle is normal in size. Normal LA size by volume 22+/-6 ml/m2. The right atrial size is normal. The aortic valve is trileaflet, and appears structurally normal. No aortic stenosis or regurgitation. Mild mitral regurgitation is present. Mild tricuspid regurgitation present. Right ventricular systolic pressure is normal at < 35 mmHg. There is no pulmonic regurgitation present. There is no pericardial effusion. CONCLUSIONS -------- 1. LV size, wall thickness and systolic function are normal, with an EF greater than 55%. 2. The left ventricular size is normal. 3. The right ventricle is normal in size. 4. Normal LA size by volume 22+/-6 ml/m2. 5. The right atrial size is normal. 6. The aortic valve is trileaflet, and appears structurally normal. No aortic stenosis or regurgitati on. 7. Mild mitral regurgitation is present. 8. Mild tricuspid regurgitation present. 9. There is no pulmonic regurgitation present. 10. There is no pericardial effusion. USER EXPERIENCE RESEARCHER: Jennifer Rivas RDCS
[2020-08-14 11:57] LABS: Glucose,Whole Blood 196 mg/dL (75-99)
[2020-08-14] MEDS: metFORMIN 500 MG TAB PO SCH (12:12)
[2020-08-14] MEDS: LORATADINE 10 MG TAB PO SCH (12:12)
[2020-08-14] MEDS: CHOLECALCIFEROL 10 MCG (400 IU) TABLET PO SCH (12:27)
[2020-08-14] MEDS: ISOSORBIDE MONONITRATE ER 30 MG TAB.ER.24H PO SCH (13:59)
[2020-08-14 14:00] VITALS: BP 100/69; PULSE 62
[2020-08-14] MEDS: PROPRANOLOL LA 60 MG CAP.SA.24H PO SCH (14:04)
--- NOTE | 2020-08-14 14:52 | ECHOS ---
STRESS ECHOCARDIOGRAM DATE OF SERVICE: August 12, 2020. INDICATION: Chest pain. LUMASON: N /A Vial MEDICATIONS: BASELINE HEART RATE: 65 BASELINE BLOOD PRESSURE: 142/72 MAXIMUM HEART RATE: 142 MAXIMUM BLOOD PRESSURE: 211/111 85% MPHR: 150 100% MPHR: 177 METS: N/A MAXIMUM STAGE REACHED: N/A TOTAL EXERCISE TIME: N/A STRESS DATA: Heart rate 64. Pressure is 142/78 mmHg. Baseline EKG showed sinus mechanism. Dobutamine infusion at a dose of 10 mcg/kg per minute was initiated and increased to 40 mcg/kg per minute per protocol. Max heart rate was 139 which is about 80% of maximum predicted heart rate with maximum blood pressure of 182/109 mmHg. Clinically the patient did not have any symptoms of chest pain or chest discomfort during the testing or on recovery. The EKG showed about 0.[address]-segment changes noted. IMAGES: Echocardiogram images from parasternal long axis view, parasternal short axis view, apical 4 chambers and apical 2 chamber views were obtained. The echocardiogram images did not show any evidence of wall motion abnormalities concerning for ischemia. CONCLUSION: 1. Mild EKG changes in response to dobutamine. 2. Normal echocardiogram in response to dobutamine. MMODL / IJN: [id number] /
--- NOTE | 2020-08-14 22:13 | DS ---
DISCHARGE SUMMARY DATE OF SERVICE: 08/14/2020 FINAL DIAGNOSES: 1. Chest pain possible musculoskeletal, negative stress echo. 2. Diabetes mellitus type 2. 3. Hyperlipidemia. 4. Hypertension. 5. History of depression, bipolar. 6. Diabetes. 7. Obesity. 8. Gastroesophageal reflux disease. DISCHARGE DISPOSITION: Patient will be discharged in stable condition with guarded prognosis. HISTORY OF PRESENT ILLNESS: This 45-year-old woman with a past medical history of multiple medical problems was admitted with chest pain. Myocardial infarction ruled out. Cardiology performed a stress echo which was normal. The patient recommended follow up in the outpatient with Cardiology as well as primary physician. On exam, vitals are stable. Cardiovascular: S1, S2. Abdomen soft. Nervous system: No focal deficits. Charge blood pressure daily and results to the primary physician. DISCHARGE MEDICATIONS: 1. Kandi as before. 2. Benadryl 50 mg p.o. b.i.d. 3. BuSpar 10 mg p.o. t.i.d. 4. Cymbalta 60 mg p.o. daily. 5. Desyrel 100 mg q.h.s. 6. Imdur ER 30 mg p.o. daily. 7. Jardiance 25 mg p.o. daily. 8. Latuda 120 mg q.h.s. 9. Lyrica 150 mg p.o. b.i.d. 10.Metformin 750 mg p.o. b.i.d. 11.Ozempic 0.5 mg subcu Friday. 12.Protonix 40 mg daily. 13.Requip 1 mg q.h.s. 14.Synthroid 50 mcg p.o. daily. 15.Topamax 75 mg p.o. b.i.d. 16.Insulin Tarceva 35 units subcu q.h.s.. 17.Hydroxy Vistaril 50 mg p.o. b.i.d. 18.Zanaflex 2 mg q.8 p.r.n. 19.Zocor 40 mg q.h.s. MMODL / IJN: [id number] /
== END 2020-08-14 15:40 | disposition home or self-care (01) ==
LOC: EC 02:02 → 6NMEDSUR 06:18
PROVIDERS: ADMIT Internal Medicine; ATTEND Internal Medicine
DX: R07.89 Other chest pain (principal); E11.65 Type 2 diabetes mellitus with hyperglycemia; E11.42 Type 2 diabetes mellitus with diabetic polyneuropathy; E78.5 Hyperlipidemia, unspecified; I11.0 Hypertensive heart disease with heart failure; E66.01 Morbid (severe) obesity due to excess calories; Z20.822 Contact with and (suspected) exposure to COVID-19; I50.9 Heart failure, unspecified; E78.1 Pure hyperglyceridemia; R00.2 Palpitations; R06.09 Other forms of dyspnea; F31.9 Bipolar disorder, unspecified; F41.9 Anxiety disorder, unspecified; K21.9 Gastro-esophageal reflux disease without esophagitis; Z68.42 Body mass index [BMI] 45.0-49.9, adult; Z79.4 Long term (current) use of insulin; Z79.82 Long term (current) use of aspirin; Z88.6 Allergy status to analgesic agent; Z88.1 Allergy status to other antibiotic agents; Z88.2 Allergy status to sulfonamides; Z79.890 Hormone replacement therapy; Z79.899 Other long term (current) drug therapy; Z87.891 Personal history of nicotine dependence; Z90.710 Acquired absence of both cervix and uterus; Z98.890 Other specified postprocedural states; Z98.891 History of uterine scar from previous surgery; Z96.653 Presence of artificial knee joint, bilateral; Z90.49 Acquired absence of other specified parts of digestive tract; Z98.84 Bariatric surgery status; Z86.14 Personal history of Methicillin resistant Staphylococcus aureus infection; Z82.49 Family history of ischemic heart disease and other diseases of the circulatory system
CPT/HCPCS: 96376 ×2; 96372 ×4; 96361; 96374; 96375; 99285; 36415; 94760; 93005; 93306; 80061 ×2; 80053; 80048; 83735; 84484; 85025; 85610; 85730; 83721; 87635; 71046; G0378 ×3; C8930; J1250; J2270; J1650 ×2; Q9950; J1644; 93351

== ENCOUNTER 2024-10-01 22:12 | Inpatient (IN) | payer MEDICARE, OTHER ==
--- NOTE | 2024-10-01 22:41 | ED ---
General Adult HPI - General Chief complaint: Chest Pain Stated complaint: Chest pain Time Seen by Provider: 10/01/24 22:23 Source: patient Mode of arrival: wheelchair - History of Present Illness Initial comments: Dictation was produced using [employer] dictation software. please excuse any grammatical, word or spelling errors. Chief Complaint: 49-year-old female chest pain History of Present Illness: Patient 49-year-old female presents with 9 out of 10 chest pain states that her symptoms are worrisome for a heart attack. She states she has strong family history with her father having heart attack symptoms and is 40s. States that the pain radiates to her left upper extremity. She does have associated nausea. Denies any diaphoresis. The ROS documented in this emergency department record has been reviewed and confirmed by me. Those systems with pertinent positive or negative responses have been documented in the HPI. All other systems are other negative and/or n oncontributory. - Related Data Home Medications Medication Instructions Recorded Confirmed Lurasidone HCl [Latuda] 120 mg PO HS 07/08/15 08/12/20 rOPINIRole HCL [Requip] 1 mg PO HS 07/08/15 08/12/20 traZODone HCL [Desyrel] 100 mg PO HS 07/08/15 08/12/20 diphenhydrAMINE [Benadryl] 50 mg PO BID 04/30/16 08/12/20 DULoxetine HCL [Cymbalta] 60 mg PO DAILY 08/12/20 08/12/20 Empagliflozin [Jardiance] 25 mg PO DAILY 08/12/20 08/12/20 Fexofenadine HCl [Kandi Allergy] 180 mg PO DAILY 08/12/20 08/12/20 Insulin Degludec [Tresiba 35 units SQ HS 08/12/20 08/12/20 Flextouch U-100 Pen] Isosorbide Mononitrate ER [Imdur] 30 mg PO DAILY 08/12/20 08/12/20 Levothyroxine Sodium [Synthroid] 50 mcg PO DAILY 08/12/20 08/12/20 Ozempic 2mg/1.5ml 0.5 mg SQ SA 08/12/20 08/12/20 Pantoprazole Sodium [Protonix] 40 mg PO DAILY 08/12/20 08/12/20 Pregabalin [Lyrica] 150 mg PO BID 08/12/20 08/12/20 Simvastatin [Zocor] 40 mg PO HS 08/12/20 08/12/20 Topiramate [Topamax] 75 mg PO BID 08/12/20 08/12/20 busPIRone HCL [Buspar] 10 mg PO TID 08/12/20 08/12/20 hydrOXYzine pamoate [Vistaril] 50 mg PO BID 08/12/20 08/12/20 metFORMIN HCL [Glucophage XR] 750 mg PO BID-W/MEALS 08/12/20 08/12/20 tiZANidine HCL [Zanaflex] 2 mg PO Q8H PRN 08/12/20 08/12/20 Allergies Allergy/AdvReac Type Severity Reaction Status Date / Time sulfamethoxazole Allergy Rash/Hives Verified 10/01/24 22:21 [From Bactrim] trimethoprim [From Bactrim] Allergy Rash/Hives Verified 10/01/24 22:21 ibuprofen [From Motrin] AdvReac Gastric Verified 10/01/24 22:21 Bypass Surgery Review of Systems ROS Statement: Those systems with pertinent positive or pertinent negative responses have been documented in the HPI. ROS Other: All systems not noted in ROS Statement are negative. Past Medical History Past Medical History: Heart Failure, Diabetes Mellitus, Hyperlipidemia, Hypertension Additional Past Medical History / Comment(s): abd pain, gastritis History of Any Multi-Drug Resistant Organisms: MRSA Date of last positivie culture/infection: 2011 in abdominal incision from RYGB MDRO Source:: patient Past Surgical History: Section, Cholecystectomy, Hysterectomy, Orthopedic Surgery, Tonsillectomy, Tubal Ligation Additional Past Surgical History / Comment(s): knee replacement bilateral, gastric bypass, bilateral carpal tunnel surgery Past Anesthesia/Blood Transfusion Reactions: No Reported Reaction Past Psychological History: Anxiety, Bipolar, Depression Smoking Status: Never smoker Past Alcohol Use History: None Reported Past Drug Use History: None Reported - Past Family History Father Family Medical History: Unable to Obtain General Exam - General Exam Comments Initial Comments: PHYSICAL EXAM: General Impression: Alert and oriented x3, not in acute distress HEENT: Normocephalic atraumatic, extra-ocular movements intact, pupils equal and reactive to light bilaterally, mucous membranes moist. Cardiovascular: Heart regular rate and rhythm Chest: Able to complete full sentences, no retractions, no tachypnea Abdomen: abdomen soft, non-tender, non-distended, no organomegaly Musculoskeletal: Pulses present and equal in all extremities, no peripheral edema Motor: no focal deficits noted Neurological: CN II-XII grossly intact, no focal motor or sensory deficits noted Skin: Intact with no visualized rashes Psych: Normal affect and mood Course Vital Signs 10/01/24 22:18 Temperature 97.9 F Pulse Rate 76 Respiratory 18 Rate Blood Pressure 137/85 O2 Sat by Pulse 99 Oximetry EKG Findings - EKG Comments: EKG Findings:: My EKG interpretation: Ventricular rate 71, sinus rhythm,. 159, QRS 89, QTc 410. No SD prolongation, no QTC prolongation, no ST or T-wave changes noted. Overall, this EKG is unremarkable Medical Decision Making - Medical Decision Making Was pt. sent in by a medical professional or institution (, PA, SHOE STITCHER, urgent care, hospital, or fci...) When possible be specific @ -No Did you speak to anyone other than the patient for history (EMS, parent, family, police, friend...)? What history was obtained from this source @ -No Did you review nursing and triage notes (agree or disagree)? Why? @ -I reviewed and agree with nursing and triage notes Were old charts reviewed (outside hosp., previous admission, EMS record, old EKG, old radiological studies, urgent care reports/EKG's, fci records)? Report findings @ -No old charts were reviewed Differential Diagnosis (chest pain, altered mental status, abdominal pain women, abdominal pain men, vaginal bleeding, musculoskeletal, weakness, fever, dyspnea, syncope, headache, dizziness, GI bleed, back pain, seizure, CVA, palpatations, mental health)? @ -Differential Chest Pain: Stable Angina, Unstable Angina, STEMI, NSTEMI Aortic Dissection, Pneumothorax, Musculoskeletal, Esophageal Spasm GERD, Cholecystitis, Pancreatitis, Zoster, this is not meant to be an all-inclusive list. EKG interpreted by me (3pts min.). @ -See above X-rays interpreted by me (1pt min.). @ -Chest x-ray is nonacute CT interpreted by me (1pt min.). @ -None done U/S interpreted by me (1pt. min.). @ -None done What testing was considered but not performed or refused? (CT, X-rays, U/S, labs)? Why? @ -None What meds were considered but not given or refused? Why? @ -None Was smoking cessation discussed for >3mins.? @ -No Were there social determinants of health that impacted care today? How? (Homeles sness, low income, unemployed, alcoholism, drug addiction, transportation, low edu. Level, literacy, decrease access to med. care, senior care, rehab)? @ -No Was there de-escalation of care discussed even if they declined (Discuss DNR or withdrawal of care, Hospice)? DNR status @ -No What co-morbidities impacted this encounter? (DM, HTN, Smoking, COPD, CAD, Cancer, CVA, ARF, Chemo, Hep., AIDS, mental health diagnosis, sleep apnea, morbid obesity)? @ -Diabetes Was patient admitted / discharged? Hospital course, mention meds given and route, prescriptions, significant lab abnormalities, going to OR and other pertinent info. @ -49-year-old female with acute coronary syndrome. Vital signs stable. EKG is unremarkable. Laboratory evaluation is unremarkable. Patient given aspirin analgesics will be admitted observation consultation to cardiology. Case discussed with hospitalist for admission Did you discuss the management of the patient with other professionals (professionals i.e. , PA, SHOE STITCHER, lab, RT, psych nurse, social media intern, division director, teacher, payroll officer, mental health case manager)? Give summary @ -See above Was critical care preformed (if so, how long)? @ -No Undiagnosed new problem with uncertain prognosis? @ -No Drug Therapy requiring intensive monitoring for toxicity (Heparin, Nitro, Insulin, Cardizem)? @ -No Were any procedures done? @ -No Diagnosis/symptom? Acute, or Chronic, or Acute on Chronic? Uncomplicated (without systemic symptoms) or Complicated (systemic symptoms)? @ -Chest pain Side effects of treatment? @ -No Exacerbation, Progression, or Severe Exacerbation? @ -No Poses a threat to life or bodily function? How? (Chest pain, [place], [place], pneumonia, PE, COPD, DKA, ARF, appy, cholecystitis, CVA, Diverticulitis, Homicidal, Suicidal, threat to staff... and all critical care pts) @ -yes - Lab Data Result diagrams: 10/01/24 23:17 10/01/24 23:17 Lab Results 10/01/24 10/01/24 10/01/24 Range/Units 23:17 23:17 23:17 WBC 5.49 (4.50-10.00) 10*3/uL RBC 4.57 (4.10-5.20) 10*6/uL Hgb 13.0 (12.0-15.0) g/dL Hct 39.9 (37.2-46.3) % MCV 87.3 (80.0-97.0) fL MCH 28.4 (27.0-32.0) pg MCHC 32.6 (32.0-37.0) g/dL Plt Count 185 (140-440) 10*3/uL MPV 10.3 (9.5-12.2) fL Immature Gran % (Auto) 0.2 % Neutrophils % 53.8 % Lymphocytes % 32.2 % Monocytes % 10.7 % Eosinophils % 2.6 % Basophils % 0.5 % Immature Gran # 0.01 (0.00-0.04) 10*3/uL Neutrophils # 2.95 (1.80-7.70) 10*3/uL Lymphocytes # 1.77 (0.90-5.00) 10*3/uL Monocytes # 0.59 (0.20-1.00) 10*3/uL Eosinophils # 0.14 (0.04-0.35) 10*3/uL Basophils # 0.03 (0.00-0.10) 10*3/uL PT 10.8 (10.0-12.5) sec INR 1.0 (<1.2) APTT 20.5 L (22.0-30.0) sec Sodium 134 L (137-145) mmol/L Potassium 4.2 (3.5-5.1) mmol/L Chloride 103 (98-107) mmol/L Carbon Dioxide 19 L (22-30) mmol/L Anion Gap 12 mmol/L BUN 11 (7-17) mg/dL Creatinine 0.67 (0.52-1.04) mg/dL Est GFR (CKD-EPI)AfAm >90 (>60 ml/min/1.73 sqM) Est GFR (CKD-EPI)NonAf >90 (>60 ml/min/1.73 sqM) Glucose 299 H (74-99) mg/dL Calcium 9.3 (8.4-10.2) mg/dL Magnesium 1.8 (1.6-2.3) mg/dL Total Bilirubin 0.4 (0.2-1.3) mg/dL AST 24 (14-36) U/L ALT 20 (4-34) U/L Alkaline Phosphatase 152 H (38-126) U/L Troponin I (0.000-0.034) ng/mL Total Protein 7.0 (6.3-8.2) g/dL Albumin 4.0 (3.5-5.0) g/dL 10/01/ Range/Units 23:17 WBC (4.50-10.00) 10*3/uL RBC (4.10-5.20) 10*6/uL Hgb (12.0-15.0) g/dL Hct (37.2-46.3) % MCV (80.0-97.0) fL MCH (27.0-32.0) pg MCHC (32.0-37.0) g/dL Plt Count (140-440) 10*3/uL MPV (9.5-12.2) fL Immature Gran % (Auto) % Neutrophils % % Lymphocytes % % Monocytes % % Eosinophils % % Basophils % % Immature Gran # (0.00-0.04) 10*3/uL Neutrophils # (1.80-7.70) 10*3/uL Lymphocytes # (0.90-5.00) 10*3/uL Monocytes # (0.20-1.00) 10*3/uL Eosinophils # (0.04-0.35) 10*3/uL Basophils # (0.00-0.10) 10*3/uL PT (10.0-12.5) sec INR (<1.2) APTT (22.0-30.0) sec Sodium (137-145) mmol/L Potassium (3.5-5.1) mmol/L Chloride (98-107) mmol/L Carbon Dioxide (22-30) mmol/L Anion Gap mmol/L BUN (7-17) mg/dL Creatinine (0.52-1.04) mg/dL Est GFR (CKD-EPI)AfAm (>60 ml/min/1.73 sqM) Est GFR (CKD-EPI)NonAf (>60 ml/min/1.73 sqM) Glucose (74-99) mg/dL Calcium (8.4-10.2) mg/dL Magnesium (1.6-2.3) mg/dL Total Bilirubin (0.2-1.3) mg/dL AST (14-36) U/L ALT (4-34) U/L Alkaline Phosphatase (38-126) U/L Troponin I <0.012 (0.000-0.034) ng/mL Total Protein (6.3-8.2) g/dL Albumin (3.5-5.0) g/dL Disposition Clinical Impression: Chest pain Disposition: ADMITTED IP TO THIS HOSP Condition: Fair Referrals: None,Stated [Primary Care Provider] - 1-2 days Decision Time: 12:30
[2024-10-01] MEDS: ASPIRIN 81 MG PO STA (22:46)
[2024-10-01] MEDS: NITROGLYCERIN SL TABS 0.4 MG TAB SUBLINGUAL STA (22:47)
[2024-10-01] MEDS: MORPHINE SULFATE 4 MG/ML SYRINGE IV STA (23:24)
[2024-10-01 23:27] LABS: Basophils # (A) 0.03 10*3/uL (0.00-0.10); Basophils % (A) 0.5 %; Eosinophils # (A) 0.14 10*3/uL (0.04-0.35); Eosinophils % (A) 2.6 %; HCT 39.9 % (37.2-46.3); HGB 13.0 g/dL (12.0-15.0); Lymphocytes # (A) 1.77 10*3/uL (0.90-5.00); Lymphocytes % (A) 32.2 %; MCH 28.4 pg (27.0-32.0); MCHC 32.6 g/dL (32.0-37.0); MCV 87.3 fL (80.0-97.0); Monocytes # (A) 0.59 10*3/uL (0.20-1.00); Monocytes % (A) 10.7 %; Neutrophils # (A) 2.95 10*3/uL (1.80-7.70); Neutrophils % (A) 53.8 %; Platelet Count 185 10*3/uL (140-440); RBC 4.57 10*6/uL (4.10-5.20); RDW 14.9 % (11.5-14.5); WBC 5.49 10*3/uL (4.50-10.00)
[2024-10-01 23:39] LABS: ALT 20 U/L (4-34); AST 24 U/L (14-36); African American GFR (CKD) >90 (>60 ml/min/1.73 sqM); Albumin 4.0 g/dL (3.5-5.0); Alkaline Phosphatase 152 U/L (38-126); Anion Gap 12 mmol/L; Blood Urea Nitrogen 11 mg/dL (7-17); Calcium 9.3 mg/dL (8.4-10.2); Carbon Dioxide 19 mmol/L (22-30); Chloride 103 mmol/L (98-107); Glucose 299 mg/dL (74-99); Magnesium 1.8 mg/dL (1.6-2.3); Non-African American GFR(CKD) >90 (>60 ml/min/1.73 sqM); Potassium 4.2 mmol/L (3.5-5.1); Sodium 134 mmol/L (137-145); Total Protein 7.0 g/dL (6.3-8.2)
--- NOTE | 2024-10-01 23:44 | XR ---
EXAMINATION TYPE: XR chest 2V DATE OF EXAM: 10/01/2024 CLINICAL INDICATION: Female, 49 years old with history of Chest Pain, TECHNIQUE: Frontal and lateral views of the chest are obtained. COMPARISON: Chest x-ray August 12, 2020 FINDINGS: There is no focal air space opacity, pleural effusion, or pneumothorax seen. The cardiac silhouette size is stable and within normal limits. The osseous structures are intact. IMPRESSION: No acute cardiopulmonary process. [facility], , 10/01/2024 11:41 PM
[2024-10-01 23:55] LABS: INR 1.0 (<1.2); Partial Thromboplastin Time 20.5 sec (22.0-30.0); Prothrombin Time 10.8 sec (10.0-12.5)
[2024-10-02] MEDS: MORPHINE SULFATE 4 MG/ML SYRINGE IVP PRN (03:22)
[2024-10-02 06:00] LABS: Glucose,Whole Blood 256 mg/dL (70-110)
[2024-10-02] MEDS ORDERED: DEXTROSE 50% SYRINGE 50 ML IVP PRN ×2 (06:42)
[2024-10-02] MEDS: INSULIN LISPRO (HumaLOG) 100 UNIT/ML 10 mL VL SQ SCH (07:07)
--- NOTE | 2024-10-02 07:45 | P.HPIM ---
History of Present Illness H&P Date: 10/02/24 Chief Complaint: chest pain 49 year old female with dm , hyperlipidemia , hypertension presented for substernal chest pain that started overnight , with radiation to the jaw, no precipitating or aggrevating factor , associated with shortness of breath , denies nausea and vomiting she also reports 1 month history of frequent syncopal like episodes (she called it loss of consciousness) , not associated with any injuries , or loss of bladder or bowel , she had cardiac workup in the past with 10 year ago , with Left heart cath , no stents needed at the time she does not take any medication for her heart or Hypertension she does take insulin for DM Review of systems All systems reviewed with pertinent positive negatives as per HPI on exam Constitutional: No acute distress, conversant, pleasant Eyes: Anicteric sclerae, moist conjunctiva, Pupils equal round reactive to light ENMT: NC/AT Oropharynx clear, no erythema, or exudates Neck: Supple, no masses, or JVD No carotid bruits No thyromegaly Lungs: Clear to auscultation Clear to percussion Normal respiratory effort, no accessory muscle use Cardiovascular: Heart regular in rate and rhythm, No murmurs, gallops, or rubs No peripheral edema Abdominal: Soft Nontender, no guarding, rebound or rigidity Abdomen moving with respiration Extremities: No digital cyanosis No clubbing Pedal pulses intact and symmetrical Radial pulses intact and symmetrical No calf tenderness Psychiatric: Alert and oriented to person, place and time Appropriate affect fair judgement Neuro Muscles Strength 5/5 in all 4 extremities Sensation to light touch grossly present throughout Cranial nerves II-XII grossly intact Past Medical History Past Medical History: Atrial Flutter, Heart Failure, Diabetes Mellitus, Hyperlipidemia, Hypertension Additional Past Medical History / Comment(s): abd pain, gastritis History of Any Multi-Drug Resistant Organisms: None Reported, MRSA Date of last positivie culture/infection: 2011 in abdominal incision from RYGB MDRO Source:: patient Past Surgical History: Section, Cholecystectomy, Hysterectomy, Orthopedic Surgery, Tonsillectomy, Tubal Ligation Additional Past Surgical History / Comment(s): knee replacement bilateral, gastric bypass, bilateral carpal tunnel surgery, cataract surgery Past Anesthesia/Blood Transfusion Reactions: No Reported Reaction Past Psychological History: Anxiety, Bipolar, Depression Smoking Status: Never smoker Past Alcohol Use History: None Reported Past Drug Use History: None Reported - Past Family History Father Family Medical History: Congestive Heart Failure (CHF) Medications and Allergies Home Medications Medication Instructions Recorded Confirmed Type Lurasidone HCl [Latuda] 120 mg PO HS 07/08/15 08/12/20 History rOPINIRole HCL [Requip] 1 mg PO HS 07/08/15 08/12/20 History traZODone HCL [Desyrel] 100 mg PO HS 07/08/15 08/12/20 History diphenhydrAMINE [Benadryl] 50 mg PO BID 04/30/16 08/12/20 History DULoxetine HCL [Cymbalta] 60 mg PO DAILY 08/12/20 08/12/20 History Empagliflozin [Jardiance] 25 mg PO DAILY 08/12/20 08/12/20 History Fexofenadine HCl [Kandi Allergy] 180 mg PO DAILY 08/12/20 08/12/20 History Insulin Degludec [Tresiba 35 units SQ HS 08/12/20 08/12/20 History Flextouch U-100 Pen] Isosorbide Mononitrate ER [Imdur] 30 mg PO DAILY 08/12/20 08/12/20 History Levothyroxine Sodium [Synthroid] 50 mcg PO DAILY 08/12/20 08/12/20 History Ozempic 2mg/1.5ml 0.5 mg SQ SA 08/12/20 08/12/20 History Pantoprazole Sodium [Protonix] 40 mg PO DAILY 08/12/20 08/12/20 History Pregabalin [Lyrica] 150 mg PO BID 08/12/20 08/12/20 History Simvastatin [Zocor] 40 mg PO HS 08/12/20 08/12/20 History Topiramate [Topamax] 75 mg PO BID 08/12/20 08/12/20 History busPIRone HCL [Buspar] 10 mg PO TID 08/12/20 08/12/20 History hydrOXYzine pamoate [Vistaril] 50 mg PO BID 08/12/20 08/12/20 History metFORMIN HCL [Glucophage XR] 750 mg PO BID-W/MEALS 08/12/20 08/12/20 History tiZANidine HCL [Zanaflex] 2 mg PO Q8H PRN 08/12/20 08/12/20 History Allergies Allergy/AdvReac Type Severity Reaction Status Date / Time sulfamethoxazole Allergy Rash/Hives Verified 10/01/24 22:21 [From Bactrim] trimethoprim [From Bactrim] Allergy Rash/Hives Verified 10/01/24 22:21 ibuprofen [From Motrin] AdvReac Gastric Verified 10/01/24 22:21 Bypass Surgery Physical Exam Vitals: Vital Signs Temp Pulse Pulse Resp BP BP Pulse Ox 10/02/24 07:00 97.9 F 59 L 14 112/72 100 10/02/24 01:44 98.1 F 67 17 128/82 100 10/02/24 01:00 64 18 115/73 97 10/01/24 22:18 97.9 F 76 18 137/85 99 Intake and Output 10/01/24 10/02/24 10/02/24 22:59 06:59 14:59 Output Total 0 Balance 0 Output: Urine 0 Stool 0 Other: Weight 138.799 kg 138.799 kg Results CBC & Chem 7: 10/01/24 23:17 10/01/24 23:17 Labs: Abnormal Lab Results - Last 24 Hours (Table) 10/01/24 10/01/24 10/02/24 Range/Units 23:17 23:17 05:55 APTT 20.5 L (22.0-30.0) sec Sodium 134 L (137-145) mmol/L Carbon Dioxide 19 L (22-30) mmol/L Glucose 299 H (74-99) mg/dL POC Glucose (mg/dL) 256 H (70-110) mg/dL Alkaline Phosphatase 152 H (38-126) U/L Thrombosis Risk Factor Assmnt - Choose All That Apply Any of the Below Risk Factors Present?: Yes Each Factor Represents 1 point: Age 41-60 years, Heart failure (<1month), Obes ity (BMI >25) Other Risk Factors: No Other congenital or acquired thrombophilia - If yes, enter type in comment: No Thrombosis Risk Factor Assessment Total Risk Factor Score: 3 Thrombosis Risk Factor Assessment Level: Moderate Risk Assessment and Plan Assessment: 49 year old female with obesity , hypertension , DM , presented with chest pain , I discussed the case with ED doc and I accepted the admission for chest pain rule out atypical chest pain rule out ACS ASA, no statin give in the ED start atorvastatin 40 mg daily check liver enzymes in 4 weeks nitro PRN for chest pain cardiology consult monitor vital signs check echo trops negative continue to trend check Lipid panel , A1c repeated syncopal episodes continue with air sampling and monitoring rule out underlying seizure check EEG neuro consult fall precautions seizure precautions DM check a1 bc , last one patient reports 8.5 levemir 10 units daily insulin sliding scale hypothyroid resume levothyroxine full code DVT PPx heparin sc tid 5000 units Labs reviewed hemoglobin 13 white count 5 Renal function unremarkable sodium 134 potassium 4.2 BUN 11 creatinine 0.6 Liver enzymes unremarkable EKG normal sinus rhythm , no acute ST deviation CXR no acute pathology
[2024-10-02] MEDS: PREGABALIN 75 MG CAP PO SCH (07:47)
[2024-10-02] MEDS: DAPAGLIFLOZIN PROPANEDIOL 10 MG TABLET PO SCH (07:47)
[2024-10-02] MEDS: LEVOTHYROXINE 50 MCG TAB PO SCH (07:47)
[2024-10-02] MEDS: ENOXAPARIN 40 MG/0.4 ML SYRINGE SQ SCH (08:01)
[2024-10-02] MEDS: VENLAFAXINE HCL ER 150 MG CAP PO SCH (11:57)
[2024-10-02] MEDS: TOPIRAMATE 25 MG TAB PO SCH (11:57)
[2024-10-02 12:14] LABS: Glucose,Whole Blood 238 mg/dL (70-110)
--- NOTE | 2024-10-02 14:00 | MR ---
EXAMINATION TYPE: MR brain wo/w con DATE OF EXAM: 10/02/2024 1:55 PM COMPARISON: None. CLINICAL INDICATION: Female, 49 years old with history of seizure, Syncope, seizure TECHNIQUE: Multiplanar and multispin-echo imaging of the brain was performed both before and after th e administration of contrast. CONTRAST: Patient received 14 mL intravenous Gadobutrol gadolinium contrast. FINDINGS: The ventricles, basal cisterns and sulci overlying the cerebral convexities are within normal limits. There is no evidence for midline shift or mass effect. Acute intracranial hemorrhage or extra-axial collection is not evident. There are no abnormal areas of increased or decreased signal intensity within the brain parenchyma. Following contrast administration, there is no evidence for pathologic enhancement or enhancing mass. The paranasal sinuses and mastoid air cells are well-aerated. IMPRESSION: Unremarkable pre and postcontrast enhanced MRI of the brain. [facility], , 10/02/2024 1:57 PM
--- NOTE | 2024-10-02 14:47 | P.CNNES ---
History of Present Illness Consult date: 10/02/24 Requesting physician: Ghulam Maciel Reason for Consult: syncope concerning for seizure History of Present Illness: This is a 49 year-old woman who presents to the emergency department because of chest pain. She also states she is passing out for the past two month. She passes out up to 3 times a day and last 1-2 minutes. Mostly happen during sitting down while awake and some times while on her feet and there are episodes while asleep. With these episode, her head slump forward and passes out. Sometimes she will have chest pain prior to these episodes. She will having shaking of upper extremities. She denies any urinary or bowel incontinence, tongue bit. Denies foaming around the mouth and her eyes are closes and some confusion with these episodes after that. Denies any triggers or stress. Denies history of seizures prior to this. She does have history of Atrial flutter, CHF, lupus, DM2, hypercholestremia. Some of the work-up during this hospital visit consisted of: I reviewed the lab work-up EKG report: Sinus rhythm. Heart rate 71. Review of Systems As per HPI. Past Medical History Past Medical History: Atrial Flutter, Heart Failure, Diabetes Mellitus, Hyperlipidemia, Hypertension Additional Past Medical History / Comment(s): abd pain, gastritis History of Any Multi-Drug Resistant Organisms: None Reported, MRSA Date of last positivie culture/infection: 2011 in abdominal incision from RYGB MDRO Source:: patient Past Surgical History: Section, Cholecystectomy, Hysterectomy, Orthop edic Surgery, Tonsillectomy, Tubal Ligation Additional Past Surgical History / Comment(s): knee replacement bilateral, gastric bypass, bilateral carpal tunnel surgery, cataract surgery Past Anesthesia/Blood Transfusion Reactions: No Reported Reaction Past Psychological History: Anxiety, Bipolar, Depression Smoking Status: Never smoker Past Alcohol Use History: None Reported Past Drug Use History: None Reported - Past Family History Father Family Medical History: Congestive Heart Failure (CHF) Medications and Allergies Home Medications Medication Instructions Recorded Confirmed Type traZODone HCL [Desyrel] 200 mg PO HS 07/08/15 10/02/24 History Empagliflozin [Jardiance] 25 mg PO DAILY 08/12/20 10/02/24 History Levothyroxine Sodium [Synthroid] 50 mcg PO DAILY 08/12/20 10/02/24 History Pantoprazole Sodium [Protonix] 40 mg PO DAILY 08/12/20 10/02/24 History Topiramate [Topamax] 50 mg PO BID 08/12/20 10/02/24 History Amitriptyline HCl [Elavil] 20 mg PO HS 10/02/24 10/02/24 History Atorvastatin [Lipitor] 80 mg PO HS 10/02/24 10/02/24 History EPINEPHrine (Auto Inject) [Epipen] 0.3 mg IM ONCE PRN 10/02/24 10/02/24 History Famotidine 40 mg PO HS 10/02/24 10/02/24 History Gabapentin [Neurontin] 800 mg PO TID 10/02/24 10/02/24 History Hydroxychloroquine Sulfate 200 mg PO BID 10/02/24 10/02/24 History [Plaquenil] Insulin Glargine,Hum.rec.anlog 30 units SQ BID 10/02/24 10/02/24 History [Lantus Solostar Pen] Insulin Lispro [humaLOG Kwikpen] See Protocol SQ TID-W/MEALS 10/02/24 10/02/24 History OXcarbazepine 150 mg PO BID 10/02/24 10/02/24 History Venlafaxine HCl [Effexor XR] 150 mg PO DAILY 10/02/24 10/02/24 History metFORMIN HCL 1,000 mg PO BID 10/02/24 10/02/24 History rOPINIRole HCL [Requip] 4 mg PO HS 10/02/24 10/02/24 History Allergies Allergy/AdvReac Type Severity Reaction Status Date / Time sulfamethoxazole Allergy Rash/Hives Verified 10/02/24 11:26 [From Bactrim] trimethoprim [From Bactrim] Allergy Rash/Hives Verified 10/02/24 11:26 ibuprofen [From Motrin] AdvReac Gastric Verified 10/02/24 11:26 Bypass Surgery Physical Examination - Vital Signs Vital Signs: Vital Signs Temp Pulse Pulse Resp BP BP Pulse Ox 10/02/24 07:00 97.9 F 59 L 14 112/72 100 10/02/24 01:44 98.1 F 67 17 128/82 100 10/02/24 01:00 64 18 115/73 97 10/01/24 22:18 97.9 F 76 18 137/85 99 Intake and Output 07/25/25 07/26/25 07/26/25 22:59 06:59 14:59 Output Total 0 Balance 0 Output: Urine 0 Stool 0 Other: Weight 138.799 kg 138.799 kg GENERAL: The patient is lying in bed and is not in acute distress. NEUROLOGICAL: Higher mental function: The patient is awake, alert, oriented to self, place and time. Patient is following commands. No aphasia and no neglect. Cranial nerves: The pupils are round, equal and reactive to light and accommodation. Visual huang are full to confrontation throughout. Extraocular movement is intact no nystagmus is noted. Facial sensation is normal to touch throughout. The facial strength is normal throughout. Hearing is normal bilaterally to hand rub. Tongue is midline and moved [id number] without any difficulty. No dysarthria is noted. Shoulder shrug is normal bilaterally. Motor: The strength is 5 over 5 throughout. Normal tone and bulk. Cerebellum: Normal finger to nose heel to daly bilaterally. Sensation: Sensation is normal to touch throughout. Reflexes (right/left): 2+ throughout. Plantars are downgoing bilaterally. Results - Laboratory Findings CBC and BMP: 10/01/24 23:17 10/01/24 23:17 Abnormal Lab Findings: Abnormal Labs 10/01/24 10/01/24 10/02/24 23:17 23:17 05:55 APTT 20.5 L Sodium 134 L Carbon Dioxide 19 L Glucose 299 H POC Glucose (mg/dL) 256 H Alkaline Phosphatase 152 H 10/02/24 12:12 APTT Sodium Carbon Dioxide Glucose POC Glucose (mg/dL) 238 H Alkaline Phosphatase Assessment and Plan Assessment: Convulsive syncope episode. States had up to 3 episodes in a days, lasting for 1-2 minutes without tongue bite, urinary or bowel incontinence. Unsure exact etiology but not clear seizure. Unsure if soley cardiac etiology Acute chest pain. History of Atrial flutter History of CHF History of lupus DM2 Hypercholestremia. Plan: Routine EEG is ordered and to be completed this Friday A.M. I ordered MRI Brain w/ and w/o and carotid duplex Ordered orthostatic vitals. Patient was notified because of her syncopal spells per [place] DMV, even though no s eizure, to avoid driving for 6 months until her last episode. To avoid swimming unassisted, avoid heavy machinery and heights. Cardiology is on board. 2D echo are ordered Cardiology team is consulted. Will defer the rest of medical management to primary team and other specialist. Thank you for the consultation. Time with Patient: Greater than 30
--- NOTE | 2024-10-02 15:17 | P.CRDCN ---
History of Present Illness Consult date: 10/02/24 History of present illness: HISTORY OF PRESENTING ILLNESS: 49-year-old with past medical history of hypertension dyslipidemia and type 2 diabetes Presents to the hospital because of some symptoms of substernal chest pressure that is in the left upper chest, radiating to back left shoulder and neck. The symptoms are persistent and does not resolve or get better. Does not have any exacerbating or alleviating factor. Does not get better with nitro or resting. Does not get worse with activity. Even happens at rest. Does not get worse with changing position or taking deep breath. She also reports on and off syncopal episodes where she will lose consciousness without any prodromal symptoms. She denies any loss of bowel bladder control. She denies any invol untary movement. She is being worked up by neurology for possible seizures and getting a brain MRI. Cardiology was consulted for atypical chest pain evaluation. ..................................... ................................................................................ ......................... Pertient Vitals: [128/82, heart rate 67 bpm Pertient Labs: Hb 13, BUN 11, creatinine 0.6, troponin is negative. EKG: EKG shows normal sinus rhythm with no significant ST-T wave changes concerning of acute ischemia Pertient Imaging: Chest x-ray does not show any signs of consolidation or conges tion. Brain MRI is nonrevealing ................................................................... ........................................................................... Prior cardiac testing: Echo and stress test from 08/2020 were nonrevealing ................................................. ................................................................................ ............. REVIEW OF SYSTEMS: 14 point review of system is negative except what is mentioned above in HPI. .......... ................................................................................ .................................................... PHYSICAL EXAMINATION: Neck: Brisk carotid upstroke, no jugular venous distention. Lungs: Clear to auscultation. Heart: Regular rate and rhythm, S1-S2, , no murmur or rub. Abdomen: Soft nontender, positive bowel sounds. Extremities: No edema, intact distal pulses. Neuro: Alert, oritented, no focal deficits. Detailed neuro exam was not performed. ................... ................................................................................ ........................................... ASSESSMENT: # Atypical chest pain, ACS has been ruled out # Recurrent syncope # Type 2 diabetes # Dyslipidemia # Hypertension # Hypothyroidism # Obesity PLAN: Obtain echocardiogram and Lexiscan nuclear stress test on Friday [place] test for her is a CCTA however patient reports that she does not have any transportation to go to [facility] for it. Obtain lipids TSH NT-proBNP A1c Neuro workup for syncope. Less likely cardiogenic. Obtain orthostatic vital signs. Monitor telemetry. Suspect obstructive sleep apnea. Recommend outpatient testing. En Leone MD, FACC, RPVI Past Medical History Past Medical History: Atrial Flutter, Heart Failure, Diabetes Mellitus, Hyperlipidemia, Hypertension Additional Past Medical History / Comment(s): abd pain, gastritis History of Any Multi-Drug Resistant Organisms: None Reported, MRSA Date of last positivie culture/infection: 2011 in abdominal incision from RYGB MDRO Source:: patient Past Surgical History: Section, Cholecystectomy, Hysterectomy, Orth opedic Surgery, Tonsillectomy, Tubal Ligation Additional Past Surgical History / Comment(s): knee replacement bilateral, gastric bypass, bilateral carpal tunnel surgery, cataract surgery Past Anesthesia/Blood Transfusion Reactions: No Reported Reaction Past Psychological History: Anxiety, Bipolar, Depression Smoking Status: Never smoker Past Alcohol Use History: None Reported Past Drug Use History: None Reported - Past Family History Father Family Medical History: Congestive Heart Failure (CHF) Medications and Allergies Home Medications Medication Instructions Recorded Confirmed Type traZODone HCL [Desyrel] 200 mg PO HS 07/08/15 10/02/24 History Empagliflozin [Jardiance] 25 mg PO DAILY 08/12/20 10/02/24 History Levothyroxine Sodium [Synthroid] 50 mcg PO DAILY 08/12/20 10/02/24 History Pantoprazole Sodium [Protonix] 40 mg PO DAILY 08/12/20 10/02/24 History Topiramate [Topamax] 50 mg PO BID 08/12/20 10/02/24 History Amitriptyline HCl [Elavil] 20 mg PO HS 10/02/24 10/02/24 History Atorvastatin [Lipitor] 80 mg PO HS 10/02/24 10/02/24 History EPINEPHrine (Auto Inject) [Epipen] 0.3 mg IM ONCE PRN 10/02/24 10/02/24 History Famotidine 40 mg PO HS 10/02/24 10/02/24 History Gabapentin [Neurontin] 800 mg PO TID 10/02/24 10/02/24 History Hydroxychloroquine Sulfate 200 mg PO BID 10/02/24 10/02/24 History [Plaquenil] Insulin Glargine,Hum.rec.anlog 30 units SQ BID 10/02/24 10/02/24 History [Lantus Solostar Pen] Insulin Lispro [humaLOG Kwikpen] See Protocol SQ TID-W/MEALS 10/02/24 10/02/24 History OXcarbazepine 150 mg PO BID 10/02/24 10/02/24 History Venlafaxine HCl [Effexor XR] 150 mg PO DAILY 10/02/24 10/02/24 History metFORMIN HCL 1,000 mg PO BID 10/02/24 10/02/24 History rOPINIRole HCL [Requip] 4 mg PO HS 10/02/24 10/02/24 History Allergies Allergy/AdvReac Type Severity Reaction Status Date / Time sulfamethoxazole Allergy Rash/Hives Verified 10/02/24 11:26 [From Bactrim] trimethoprim [From Bactrim] Allergy Rash/Hives Verified 10/02/24 11:26 ibuprofen [From Motrin] AdvReac Gastric Verified 10/02/24 11:26 Bypass Surgery Physical Exam Vitals: Vital Signs Temp Pulse Pulse Resp BP BP Pulse Ox 10/02/24 07:00 97.9 F 59 L 14 112/72 100 10/02/24 01:44 98.1 F 67 17 128/82 100 10/02/24 01:00 64 18 115/73 97 10/01/24 22:18 97.9 F 76 18 137/85 99 Intake and Output 10/02/24 10/02/24 10/02/24 06:59 14:59 22:59 Output Total 0 Balance 0 Output: Urine 0 Stool 0 Other: # Voids 2 Weight 138.799 kg Results 10/01/24 23:17 10/01/24 23:17 Cardiac Enzymes 10/01/24 10/01/24 10/02/24 Range/Units 23:17 23:17 03:04 AST 24 (14-36) U/L Troponin I <0.012 <0.012 (0.000-0.034) ng/mL 10/02/24 Range/Units 05:32 AST (14-36) U/L Troponin I <0.012 (0.000-0.034) ng/mL Coagulation 10/01/24 Range/Units 23:17 PT 10.8 (10.0-12.5) sec APTT 20.5 L (22.0-30.0) sec CBC 10/01/24 Range/Units 23:17 WBC 5.49 (4.50-10.00) 10*3/uL RBC 4.57 (4.10-5.20) 10*6/uL Hgb 13.0 (12.0-15.0) g/dL Hct 39.9 (37.2-46.3) % Plt Count 185 (140-440) 10*3/uL Comprehensive Metabolic Panel 10/01/24 Range/Units 23:17 Sodium 134 L (137-145) mmol/L Potassium 4.2 (3.5-5.1) mmol/L Chloride 103 (98-107) mmol/L Carbon Dioxide 19 L (22-30) mmol/L BUN 11 (7-17) mg/dL Creatinine 0.67 (0.52-1.04) mg/dL Glucose 299 H (74-99) mg/dL Calcium 9.3 (8.4-10.2) mg/dL AST 24 (14-36) U/L ALT 20 (4-34) U/L Alkaline Phosphatase 152 H (38-126) U/L Total Protein 7.0 (6.3-8.2) g/dL Albumin 4.0 (3.5-5.0) g/dL Current Medications Generic Name Dose Route Start Last Admin Trade Name Freq PRN Reason Stop Dose Admin Aminophylline 100 mg 10/02/24 15:15 Aminophylline 500 Mg/20 Ml Vial IV 10/02/24 19:16 ONCE PRN Patient Response Amitriptyline HCl 20 mg 10/02/24 21:00 Amitriptyline Hcl 10 Mg Tab PO HS CYN Aspirin 325 mg 10/03/24 09:00 Aspirin 325 Mg Tab PO DAILY CYN Atorvastatin Calcium 80 mg 10/02/24 21:00 Atorvastatin 80 Mg Tab PO HS CYN Caffeine Citrate 60 mg 10/02/24 15:15 Caffeine Citrate 60 Mg/3 Ml Vial IV 10/02/24 19:16 ONCE PRN Patient Response Dapagliflozin 10 mg 10/02/24 09:00 10/02/24 07:47 Dapagliflozin Propanediol 10 Mg Tablet PO 10 mg DAILY CYN Administration Dextrose/Water 25 ml 10/02/24 06:42 Dextrose 50% Syringe 50 Ml IVP PER PROTOCOL PRN Hypoglycemia Protocol Dextrose/Water 50 ml 10/02/24 06:42 Dextrose 50% Syringe 50 Ml IVP PER PROTOCOL PRN Hypoglycemia Protocol Enoxaparin Sodium 40 mg 10/02/24 09:00 10/02/24 08:01 Enoxaparin 40 Mg/0.4 Ml Syringe SQ Not Given DAILY [facility] Famotidine 40 mg 10/02/24 21:00 Famotidine 20 Mg Tab PO HS [facility] Gabapentin 800 mg 10/02/24 16:00 Gabapentin 400 Mg Cap PO TID [facility] Hydroxychloroquine Sulfate 200 mg 10/02/24 21:00 Hydroxychloroquine Sulfate 200 Mg Tab PO BID [facility] Insulin Glargine 30 unit 10/02/24 21:00 Insulin Glargine (Lantus) 100 Unit/Ml Syr SQ BID@0700,2100 [facility] Insulin Human Lispro 0 unit 10/02/24 07:30 10/02/24 14:00 Insulin Lispro (Humalog) 100 Unit/Ml 10 Ml Vl SQ 6 unit ACHS CYN Administration Protocol Levothyroxine Sodium 50 mcg 10/02/24 09:00 10/02/24 07:47 Levothyroxine 50 Mcg Tab PO 50 mcg DAILY CYN Administration Morphine Sulfate 4 mg 10/02/24 01:10 10/02/24 11:56 Morphine Sulfate 4 Mg/Ml Syringe IVP 4 mg Q4HR PRN Administration Severe Pain (Scale 7 to 10) Oxcarbazepine 150 mg 10/02/24 11:45 10/02/24 11:57 Oxcarbazepine 150 Mg Tab PO 150 mg BID CYN Administration Pantoprazole Sodium 40 mg 10/03/24 09:00 Pantoprazole 40 Mg Tablet PO DAILY [facility] Pregabalin 150 mg 10/02/24 09:00 10/02/24 07:47 Pregabalin 75 Mg Cap PO 150 mg BID CYN Administration Regadenoson 0.4 mg 10/02/24 15:15 Regadenoson 0.4 Mg/5 Ml Syringe IV 10/02/24 19:16 ONCE PRN Per Protocol Ropinirole HCl 4 mg 10/02/24 21:00 Ropinirole Hcl 4 Mg Tablet PO HS CYN Topiramate 50 mg 10/02/24 11:45 10/02/24 11:57 Topiramate 25 Mg Tab PO 50 mg BID CYN Administration Trazodone HCl 100 mg 10/02/24 21:00 Trazodone Hcl 100 Mg Tab PO HS [facility]N Venlafaxine HCl 150 mg 10/02/24 11:45 10/02/24 11:57 Venlafaxine Hcl Er 150 Mg Cap PO 150 mg DAILY CYN Administration Intake and Output 10/02/24 10/02/24 10/02/24 06:59 14:59 22:59 Output Total 0 Balance 0 Output: Urine 0 Stool 0 Other: # Voids 2 Weight 138.799 kg 10/01/24 23:17 10/01/24 23:17
--- NOTE | 2024-10-02 16:22 | US ---
EXAMINATION TYPE: US carotid duplex BILAT DATE OF EXAM: 10/02/2024 COMPARISON: NONE CLINICAL INDICATION: Female, 49 years old with history of syncope; episodes of syncope x 2 months Additional History: R55 Syncope TECHNIQUE: Grayscale, color Doppler and spectral Doppler evaluation of the bilateral carotid systems and vertebral arteries. Indirect Doppler criteria was utilized. FINDINGS: EXAM MEASUREMENTS: RIGHT: Peak Systolic Velocity (PSV) cm/sec ----- Right CCA: 85.5 ----- Right ICA: 66.3 ----- Right ECA: 101 ICA/CCA ratio: 1.3 RIGHT: End Diastole cm/sec ----- Right CCA: 16.3 ----- Right ICA: 17.6 ----- Right ECA: 12.1 LEFT: Peak Systolic Velocity (PSV) cm/sec ----- Left CCA: 67.1 ----- Left ICA: 69.3 ----- Left ECA: 107 ICA/CCA ratio: 1.0 LEFT: End Diastole cm/sec ----- Left CCA: 16.9 ----- Left ICA: 33.2 ----- Left ECA: 12.0 VERTEBRALS (direction of flow): Right Vertebral: Antegrade Left Vertebral: Antegrade Rhythm: Normal GAS LINE REPAIRER NOTES: No elevated velocities, stenosis or plaque Color Doppler imaging shows patency with blood flow throughout the carotid artery. Spectral waveforms are within normal limits. IMPRESSION: Right: No hemodynamically significant stenosis. Left: No hemodynamically significant stenosis. Criteria for Assigning % of Stenosis / Diameter reduction (Estimation based on the indirect measurements of the internal carotid artery velocities (ICA PSV). 1. Normal (no stenosis)=ICA PSV < 180 cm/s: ratio < 2.0: ICA EDV<40 cm/s. 2. Less than 50% stenosis=ICA PSV < 180 cm/s: ratio < 2.0: ICA EDV<40 cm/s. 3. 50 to 69% stenosis=ICA PSV of 180 to 230 cm/s: ration 2.0 ? 4.0: ICA EDV 40-100 cm/s. PSV 125-180 cm/sec and ICA/CCA PSV Ratio ? 2.0 is also consistent with 50-69% stenosis 4. Greater than 70% stenosis to near occlusion= ICA PSV > 230 cm/s: ratio > 4.0: ICA EDV > 100 cm/s. 5. Near occlusion= ICA PSV velocities may be low or undetectable: variable ratio and ICA EDV. 6. Total occlusion=unable to detect flow. [facility], , 10/02/2024 4:20 PM
[2024-10-02 17:20] LABS: Glucose,Whole Blood 199 mg/dL (70-110)
[2024-10-02] MEDS: GABAPENTIN 400 MG CAP PO SCH (17:32)
[2024-10-02] MEDS: diphenhydrAMINE 25 MG CAP PO PRN (17:32)
[2024-10-02 17:54] LABS: Urine Alcohol Negative (Negative); Urine Barbiturate Negative (Negative)
[2024-10-02 18:42] LABS: NT-Pro-B-Type Natriuretic Pept 21 pg/mL
[2024-10-02 20:00] LABS: Glucose,Whole Blood 210 mg/dL (70-110)
[2024-10-02] MEDS: ATORVASTATIN 80 MG TAB PO SCH (20:36)
[2024-10-02] MEDS: FAMOTIDINE 20 MG TAB PO SCH (20:36)
[2024-10-02] MEDS: INSULIN GLARGINE (LANTUS) 100 UNIT/ML SYR SQ SCH (20:36)
[2024-10-02] MEDS: AMITRIPTYLINE HCL 10 MG TAB PO SCH (20:37)
[2024-10-02] MEDS: HYDROXYCHLOROQUINE SULFATE 200 MG TAB PO SCH (20:37)
[2024-10-02] MEDS: rOPINIRole HCL 4 MG TABLET PO SCH (20:37)
[2024-10-02] MEDS ORDERED: ATORVASTATIN 20 MG TAB PO SCH (21:00)
[2024-10-03 05:59] LABS: Glucose,Whole Blood 287 mg/dL (70-110)
[2024-10-03] MEDS: ASPIRIN 325 MG TAB PO SCH (08:49)
[2024-10-03] MEDS: PANTOPRAZOLE 40 MG TABLET PO SCH (08:50)
[2024-10-03] MEDS: CLOBETASOL PROP 0.05% CR 15GM TOPICAL SCH (11:13)
[2024-10-03 11:32] LABS: Cholesterol 164.0 mg/dL (0.00-200.00); HDL Cholesterol 40.5 mg/dL (40.00-60.00); Triglycerides 467.0 mg/dL (0.00-149.00); VLDL Calculation 93.4 mg/dL (5.00-40.00)
--- NOTE | 2024-10-03 11:44 | P.PN ---
Subjective Progress Note Date: 10/03/24 49 year old F with PMH DM, HLD, SLE, Anxiety/Bipolar/Depression presents to the ED for chest pain. She also reports nodding off and eventually passing out that has been upwards of 3 times a day, ongoing for the past 2 months. She denies any seizure like activity or tongue biting, bladder or bowel incontinence during this time. In the ED she underwent extensive evaluation. BP 137/85, HR 76, T 97.9F, RR 18, 99% on RA. Labs significant for APTT 20.5, Na 134, bicarb 19, glu 299, alk phos 152. Trop < 0.012 x 3. BNP 21. TSH 3.54. UDS + opiates. Patient was admitted for Cardiology and Neurology evaluation. 10/03 Patient was seen and examined. Denies chest pain. Reports skin lesions related to Lupus. MRI brain negative. Orthostats negative. CUS negative for stenosis. Cardiology recommending Echo and stress test on Friday. Neurology recommending EEG, MRI brain, CUS, Orthostats. UDS + opiate. General: non toxic, no distress, appears at stated age Derm: warm, dry Head: atraumatic, normocephalic, symmetric Eyes: EOMI, no lid lag, anicteric sclera Mouth: no lip lesion, mucus membranes moist Cardiovascular: S1S2 reg, no murmur Lungs: Decreased BS bilateral, no rhonchi, no rales , no accessory muscle use Ext: no gross muscle atrophy, no edema, no contractures Neuro: no focal neuro deficits Psych: Alert and oriented. Based on my assessment of this patient, this patient meets a high complexity [place] of care. Chest pain: ACS ruled out. Eco ordered and pending. Plans for stress test on Friday per Cardiology. Syncope: Orthostats negative. CUS negative. MRI brain neg. Telemetry monitoring. Fall and Seizure precautions. PT and OT consult. Plans for EEG per Neurology. Cutaneous lupus erythematosus: Clobetasol topical cream ordered BID. DM: Lantus 30 units BID. Farxiga 10 mg PO QD. ISS + Accuchecks ACHS along with hypoglycemic precautions. Hypothryoid: Synthroid 50 mcg PO QD. HLD: Lipitor 80 mg PO QHS. SLE: Plaquenil 200 mg PO BID. Anxiety/Bipolar/Depression: Elavil 20 mg PO QHS. Oxcarbazepine 150 mg PO BID. Topamax 50 mg PO BID. Effexor 150 mg PO QD. Peripheral neuropathy: Gabapentin 800 mg PO TID. GERD: Pepcid 40 mg PO QHS. Protonix 40 mg PO QD. RLS: Requip 4 mg PO QHS. Insomnia: Trazadone 200 mg PO QHS. CODE STATUS: FULL CODE. DVT Prophylaxis: Lovenox SQ GI Prophylaxis: Pepcid + Protonix. Designated medical POA if patient is not able to make medical decisions for themselves: I have reviewed the following construction safety consultant notes: I have reviewed the results of the following tests: MRI brain. CUS. Orthostats. UDS + opiate. I have ordered the following tests: I have discussed the care of this patient with the following independent historian: I have independently interpreted the following test below: I have discussed the management of this patient with the following physician: Objective - Vital Signs Vital signs: Vital Signs Temp 98.1 F 10/03/24 08:00 Pulse 83 10/03/24 08:00 Resp 17 10/03/24 08:00 BP 136/71 10/03/24 08:00 Pulse Ox 98 10/03/24 08:00 FiO2 Intake & Output 10/02/24 10/03/24 10/03/24 18:59 06:59 18:59 Output Total 0 Balance 0 Output: Urine 0 Stool 0 Other: # Voids 2 2 - Labs CBC & Chem 7: 10/01/24 23:17 10/01/24 23:17 Labs: Abnormal Lab Results - Last 24 Hours (Table) 10/02/24 10/02/24 10/02/24 Range/Units 11:00 12:12 17:19 POC Glucose (mg/dL) 238 H 199 H (70-110) mg/dL Urine Opiates Screen Positive A (Negative) 10/02/24 10/03/24 Range/Units 19:54 05:58 POC Glucose (mg/dL) 210 H 287 H (70-110) mg/dL Urine Opiates Screen (Negative)
[2024-10-03 11:50] LABS: LDL Cholesterol,Direct Reflex 71.3 mg/dL (0.00-129.00)
[2024-10-03 12:14] LABS: Glucose,Whole Blood 251 mg/dL (70-110)
--- NOTE | 2024-10-03 14:31 | CA ---
Transthoracic Echo Report Name: Adriana Swanson Age: 49 Gender: F : 1975 Exam Date: 10/02/2024 15:48 Exam Location: [place] [facility] Ht (in): 71 Wt (lb): 306 Ordering Physician: En Leone MD ([email or web address]) Attending/Referring Phys: Shuttler Car Perlita Mensah RDCS Procedure CPT: Indications: dyspnea on exersion Cardiac Hx: Technical Quality: Good Contrast 1: Total Dose (mL): Contrast 2: Total Dose (mL): MEASUREMENTS (Male / Female) Normal Values 2D ECHO LV Diastolic Diameter PLAX 4.1 cm 4.2 - 5.9 / 3.9 - 5.3 cm LV Systolic Diameter PLAX 2.9 cm IVS Diastolic Thickness 1.2 cm 0.6 - 1.0 / 0.6 - 0.9 cm LVPW Diastolic Thickness 1.2 cm 0.6 - 1.0 / 0.6 - 0.9 cm LV Relative Wall Thickness 0.6 RV Internal Dim ED PLAX 3.5 cm LA Systolic Diameter LX 3.5 cm 3.0 - 4.0 / 2.7 - 3.8 cm LV Diastolic Volume MOD 4C 141.5 cm??? LV Systolic Volume MOD 4C 68.1 cm??? LV Ejection Fraction MOD 4C 51.9 % LV Cardiac Index MOD 4C 1847.1 cm???/min???m??? LV Diastolic Length 4C 8.7 cm LV Systolic Length 4C 7.0 cm LV Diastolic Volume MOD 2C 126.3 cm??? LV Systolic Volume MOD 2C 45.1 cm??? LV Ejection Fraction MOD 2C 64.3 % LV Cardiac Index MOD 2C 2043.2 cm???/min???m??? LV Diastolic Length 2C 8.3 cm LV Systolic Length 2C 6.4 cm LA Volume 72.8 cm??? 18 - 58 / 22 - 52 cm??? LA Volume Index 27.0 cm???/m??? 16 - 28 cm???/m??? DOPPLER AV Peak Velocity 118.4 cm/s AV Peak Gradient 5.6 mmHg MV Area PHT 4.2 cm??? Mitral E Point Velocity 78.8 cm/s Mitral A Point Velocity 68.6 cm/s Mitral E to A Ratio 1.1 MV Deceleration Time 178.9 ms TR Peak Velocity 199.1 cm/s TR Peak Gradient 15.9 mmHg Right Ventricular Systolic Press 20.9 mmHg FINDINGS Left Ventricle Left ventricular ejection fraction is estimated at 55-60 %. Left ventricular cavity size normal. Mildly increased septal wall thickness. Mildly increased posterior wall thickness. Normal left ventricular wall motion. Right Ventricle Normal right ventricular size. Right ventricular systolic pressure within normal limits. Right Atrium Normal right atrial size. No right atrial thrombus or mass seen. Left Atrium Mild increased left atrial volume. No left atrial thrombus or mass present. Mitral Valve Structurally normal mitral valve. No mitral stenosis, regurgitation or prolapse. Aortic Valve Trileaflet aortic valve. No aortic valve stenosis or regurgitation. Tricuspid Valve Structurally normal tricuspid valve. Trace to mild tricuspid regurgitation. Pulmonic Valve Structurally normal pulmonic valve. No pulmonic regurgitation. Pericardium No pericardial effusion. Aorta Normal size aortic root and proximal ascending aorta. CONCLUSIONS LVEF 55% Mild concentric LVH No obvious RWMA Normal RV size and systolic function Mild left atrial dilatation No significant valvular dysfunction Previewed by: Dr En Leone (Electronically Signed) Final Date: 03 October 2024 14:31
[2024-10-03 17:27] LABS: Glucose,Whole Blood 254 mg/dL (70-110)
[2024-10-03 20:47] LABS: Glucose,Whole Blood 236 mg/dL (70-110)
[2024-10-03] MEDS ORDERED: NITROGLYCERIN SL TABS 0.4 MG TAB SUBLINGUAL PRN (23:32)
[2024-10-03] MEDS ORDERED: ALPRAZolam 0.5 MG TAB PO PRN (23:32)
[2024-10-03] MEDS ORDERED: ALPRAZolam 0.25 MG TAB PO PRN ×2 (23:32→23:42)
--- NOTE | 2024-10-03 23:39 | P.PN ---
Subjective Progress Note Date: 10/03/24 HISTORY OF PRESENTING ILLNESS: 49-year-old with past medical history of hypertension dyslipidemia and type 2 diabetes Presents to the hospital because of some symptoms of substernal chest pressure that is in the left upper chest, radiating to back left shoulder and neck. The symptoms are persistent and does not resolve or get better. Does not have any exacerbating or alleviating factor. Does not get better with nitro or resting. Does not get worse with activity. Even happens at rest. Does not get worse with changing position or taking deep breath. She also reports on and off syncopal episodes where she will lose consciousness without any prodromal symptoms. She denies any loss of bowel bladder control. She denies any involuntary movement. She is being worked up by neurology for possible seizures and getting a brain MRI. Cardiology was consulted for chest pain evaluation. .......... ................................................................................ .................................................... Pertient Vitals: [128/82, heart rate 67 bpm Pertient Labs: Hb 13, BUN 11, creatinine 0.6, troponin is negative. EKG: EKG shows normal sinus rhythm with no significant ST-T wave changes concerning of acute ischemia Pertient Imaging: Chest x-ray does not show any signs of consolidation or congestion. Brain MRI is nonrevealing ........................................ ................................................................................ ...................... Prior cardiac testing: Echo and stress test from 08/2020 were nonrevealing ...................... ................................................................................ ........................................ Progress note 10/03/2024 Patient is reporting substernal chest pressure-like symptoms with activity like getting up and going to the bathroom. She is not interested in getting a cardiac catheterization and is very concerned about coronary artery disease because of strong family history of CAD. Triglycerides 467, LDL 71, VLDL 93, TSH 3.5, A1c 9.6, NT-proBNP 21 .................. ................................................................................ ............................................ PHYSICAL EXAMINATION: Neck: Brisk carotid upstroke, no jugular venous distention. Lungs: Clear to auscultation. Heart: Regular rate and rhythm, S1-S2, , no murmur or rub. Abdomen: Soft nontender, positive bowel sounds. Extremities: No edema, intact distal pulses. Neuro: Alert, oritented, no focal deficits. Detailed neuro exam was not performed. ........................... ................................................................................ ................................... ASSESSMENT: # Unstable angina # Recurrent syncope # Type 2 diabetes, A1c 9.6 # Dyslipidemia with hypertriglyceridemia, TG 467 # Hypertension # Hypothyroidism # Obesity PLAN: [place] test for her is a [facility] however patient reports that she does not have any transportation to go to [facility]. She is not wanting to get a cardiac stress testing done as she has had it multiple times in the past and they were nonrevealing. Because of her ongoing substernal chest pain and because of strong family history of CAD she is highly concerned about it and would like to get a cardiac catheterization done. Plan for cardiac catheterization tomorrow because of ongoing substernal chest pressure symptoms likely from unstable angina Procedural steps of cardiac catheterization, indication, and potential complications were explained to the patient. I explained to her potential risk of stroke, SD, vascular injury, to the patient. Patient would like to proceed with heart catheterization procedure understanding these potential complications. Objective - Vital Signs Vital signs: Vital Signs Temp 98.3 F 10/03/24 20:00 Pulse 82 10/03/24 20:00 Resp 17 10/03/24 20:00 BP 115/78 10/03/24 20:00 Pulse Ox 95 10/03/24 20:00 FiO2 Intake & Output 10/03/24 10/03/24 10/04/24 06:59 18:59 06:59 Output Total 0 0 0 Balance 0 0 0 Output: Urine 0 Stool 0 0 0 Other: # Voids 2 - Labs CBC & Chem 7: 10/01/24 23:17 10/01/24 23:17 Labs: Abnormal Lab Results - Last 24 Hours (Table) 10/01/24 10/01/2410/03/25 Range/Units 23:17 23:17 05:58 POC Glucose (mg/dL) 287 H (70-110) mg/dL Hemoglobin A1c 9.6 H (<=6.0) % Triglycerides 467.00 H (0.00-149.00) mg/dL VLDL Cholesterol, Calc 93.40 H (5.00-40.00) mg/dL 10/03/24 10/03/24 10/03/24 Range/Units 12:13 17:26 20:35 POC Glucose (mg/dL) 251 H 254 H 236 H (70-110) mg/dL Hemoglobin A1c (<=6.0) % Triglycerides (0.00-149.00) mg/dL VLDL Cholesterol, Calc (5.00-40.00) mg/dL
[2024-10-04] MEDS: ASPIRIN 325 MG TAB PO STA (00:38)
[2024-10-04] MEDS: ATORVASTATIN 80 MG TAB PO ONE (05:43)
[2024-10-04 05:48] LABS: Glucose,Whole Blood 291 mg/dL (70-110)
[2024-10-04] MEDS ORDERED: CAFFEINE CITRATE 60 MG/3 ML VIAL IV PRN (07:00)
[2024-10-04] MEDS ORDERED: REGADENOSON 0.4 MG/5 ML SYRINGE IV PRN (07:00)
[2024-10-04] MEDS ORDERED: AMINOPHYLLINE 500 MG/20 ML VIAL IV PRN (07:00)
[2024-10-04] MEDS: ASPIRIN 325 MG TAB PO ONE (07:20)
[2024-10-04] MEDS: MIDAZOLAM 2 MG/2 ML VIAL IVP ONE (07:40)
[2024-10-04] MEDS: fentaNYL (PF) 50 MCG/1 ML VIAL IVP ONE (07:40)
[2024-10-04] MEDS: SODIUM CHLORIDE 0.9% 1,000 ML IV ONE (07:44)
[2024-10-04] MEDS: HEPARIN SODIUM,PORCINE (1 ML) 2,500 UNIT in SODIUM CHLORIDE 0.9% 250 ML IRRIGATION PRN (07:45)
[2024-10-04] MEDS: LIDOCAINE 1% INJ 10MG/ML (20 ML MDV) SQ ONE (07:45)
[2024-10-04] MEDS: HEPARIN SODIUM,PORCINE 10,000 UNIT in SODIUM CHLORIDE 0.9% 1,000 ML IRRIGATION PRN (07:45)
[2024-10-04] MEDS: VERAPAMIL SYRINGE (5 MG/10 ML) INTRAARTER ONE (07:48)
[2024-10-04] MEDS: HEPARIN SODIUM 1,000 UN/ML (10ML VL) IVP ONE (08:01)
[2024-10-04] MEDS ORDERED: RX INFO: IV CONTRAST WAS GIVEN 1 EACH MISC MISCELLANE PRN (08:14)
--- NOTE | 2024-10-04 08:15 | P.CRDCN ---
History of Present Illness Consult date: 10/04/24 History of present illness: DIAGNOSTIC CORONARY ANGIOGRAPHY and LEFT HEART CATH REPORT PROCEDURES PERFORMED: Left heart catheterization Selective coronary angiography Moderate conscious sedation 13 mins [Ultrasound assisted] Right radial access INDICATION: Unstable angina BRIEF HPI: 49-year-old with history of type 2 diabetes poorly controlled, hypertriglyceridemia, dyslipidemia hypothyroidism, healthcare disparity with lack of transportation, poor social situation with financial constraints. She presents to the hospital because of substernal chest pressure-like symptoms which has been relapsing remitting but has been more persistent lately. She does carry a strong family history of CAD. Due to this she is very concerned and would like to get a cardiac catheterization done. I offered her alternative methods of doing a stress test with [facility] but she reports that she has had stress test in the past which has been negative and she cannot go to the nearest [facility] which is in [place] due to lack of transportation. CONSENT: I have explained the procedural steps of above-mentioned procedures in layman's terms to the patient. I discussed the risks (including but not limited to stroke, emergent vascular or cardiac surgery or ), benefits and alternat santa therapies for the above-mentioned procedure. I discussed the risks of sedation/analgesia and blood product administration (if indicated). The patient has indicated understanding and acceptance of these risks. Conscious Sedation: Patient's ECG, heart rate, blood pressure, pulse oximetry were monitored throughout the duration of procedure under my direct supervision. 1 mg Versed and [50] mcg Fentanyl were used for induction of moderate conscious sedation. Total duration of moderate concious sedation [25] minutes. PROCEDURAL DETAILS: Patient was prepped and draped in sterile fashion. 1% lidocaine was infiltrated over the right radial artery. Right radial access was obtained via modified seldinger technique. [Ultrasound was used for radial access]. Medications: 5mg of verapamil was administed in the radial sheet. 6000 Units of Heparin was administed once the catheter reached the aortic root Wires and Catheter used: J wire was advanced under fluroscopy to get to aortic root. 5 georgian JR 4 diagnostic catheter was utilized obtain left ventricular pressure and pressure gradint across aortic valve. 5 georgian JR 4 diagnostic catheter was used to selectively engage the right coronary ostium. 5 georgian JL 3.5 diagnostic catheter was utilized to selectively engage the left coronary ostium. Angiographic images were reviewed in detail. Catheter and wire were removed. Radial sheet was flushed. The right radial sheath was removed and a TR band was placed. Patent hemostasis was achieved. The patient tolerated the procedure well. Patient was transported back to the post catheterization holding area in stable condition. TECHNICAL DETAILS Total radiation: 23 mGy Total contrast used: Isovue [60 ml] Complications: [none] Estimated Blood loss: less than 15 ml HEMODYNAMICS: Aortic Pressure: 110/70 mmHg. LV pressure: 110/2 mmHg. LVEDP 10 mmHg. There was no significant gradient across the aortic valve. SELECTIVE CORONARY ARTERIOGRAPHY: LEFT MAIN: The left main is short and large caliber vessel. It bifurcates into the LAD and circumflex. Left main appears angiographically normal. LEFT ANTERIOR DESCENDING CORONARY ARTERY: LAD patient is graphically patent. LEFT CIRCUMFLEX CORONARY ARTERY: LCx is nondominant, it appears angiographically patent. RIGHT CORONARY ARTERY: Dominant vessel. Large caliber, appears angiographically patent. Distally it gives rise to PDA PL branches. IMPRESSION: Angiographically patent coronary arteries Normal left ventricular filling pressure PLAN: Aggressive risk factor modification per most recent ACC/AHA guidelines. 125 cc fluids for 4 hours Discharge home in 4 hours Follow-up in the office in 1-2 weeks. Performing Physician En Leone MD, FACC, RPVI Thank you for allowing [facility] to participate in this patient's care. Feel free to reach out in case of any followup questions. Past Medical History Past Medical History: Atrial Flutter, Heart Failure, Diabetes Mellitus, Hyperlipidemia, Hypertension Additional Past Medical History / Comment(s): abd pain, gastritis History of Any Multi-Drug Resistant Organisms: None Reported, MRSA Date of last positivie culture/infection: 2011 in abdominal incision from RYGB MDRO Source:: patient Past Surgical History: Section, Cholecystectomy, Hysterectomy, Orthopedic Surgery, Tonsillectomy, Tubal Ligation Additional Past Surgical History / Comment(s): knee replacement bilateral, gastric bypass, bilateral carpal tunnel surgery, cataract surgery Past Anesthesia/Blood Transfusion Reactions: No Reported Reaction Past Psychological History: Anxiety, Bipolar, Depression Smoking Status: Never smoker Past Alcohol Use History: None Reported Past Drug Use History: None Reported - Past Family History Father Family Medical History: Congestive Heart Failure (CHF) Medications and Allergies Home Medications Medication Instructions Recorded Confirmed Type traZODone HCL [Desyrel] 200 mg PO HS 07/08/15 10/02/24 History Empagliflozin [Jardiance] 25 mg PO DAILY 08/12/20 10/02/24 History Levothyroxine Sodium [Synthroid] 50 mcg PO DAILY 08/12/20 10/02/24 History Pantoprazole Sodium [Protonix] 40 mg PO DAILY 08/12/20 10/02/24 History Topiramate [Topamax] 50 mg PO BID 08/12/20 10/02/24 History Amitriptyline HCl [Elavil] 20 mg PO HS 10/02/24 10/02/24 History Atorvastatin [Lipitor] 80 mg PO HS 10/02/24 10/02/24 History EPINEPHrine (Auto Inject) [Epipen] 0.3 mg IM ONCE PRN 10/02/24 10/02/24 History Famotidine 40 mg PO HS 10/02/24 10/02/24 History Gabapentin [Neurontin] 800 mg PO TID 10/02/24 10/02/24 History Hydroxychloroquine Sulfate 200 mg PO BID 10/02/24 10/02/24 History [Plaquenil] Insulin Glargine,Hum.rec.anlog 30 units SQ BID 10/02/24 10/02/24 History [Lantus Solostar Pen] Insulin Lispro [humaLOG Kwikpen] See Protocol SQ TID-W/MEALS 10/02/24 10/02/24 History OXcarbazepine 150 mg PO BID 10/02/24 10/02/24 History Venlafaxine HCl [Effexor XR] 150 mg PO DAILY 10/02/24 10/02/24 History metFORMIN HCL 1,000 mg PO BID 10/02/24 10/02/24 History rOPINIRole HCL [Requip] 4 mg PO HS 10/02/24 10/02/24 History Allergies Allergy/AdvReac Type Severity Reaction Status Date / Time sulfamethoxazole Allergy Rash/Hives Verified 10/02/24 11:26 [From Bactrim] trimethoprim [From Bactrim] Allergy Rash/Hives Verified 10/02/24 11:26 ibuprofen [From Motrin] AdvReac Gastric Verified 10/02/24 11:26 Bypass Surgery Physical Exam Vitals: Vital Signs Temp Pulse Resp BP Pulse Ox 10/04/24 06:57 98 F 73 16 108/74 96 10/04/24 00:42 98.2 F 81 17 107/71 97 10/03/24 20:00 98.3 F 82 17 115/78 95 10/03/24 14:00 98.5 F 18 116/82 97 Intake and Output 10/03/24 10/04/24 10/04/24 22:59 06:59 14:59 Output Total 0 Balance 0 Output: Stool 0 Other: # Voids 2 Results 10/01/24 23:17 10/01/24 23:17 Lipids 10/01/24 Range/Units 23:17 Triglycerides 467.00 H (0.00-149.00) mg/dL Cholesterol 164.00 (0.00-200.00) mg/dL HDL Cholesterol 40.50 (40.00-60.00) mg/dL Cholesterol/HDL Ratio 4.05 Ratio Current Medications Generic Name Dose Route Start Last Admin Trade Name Freq PRN Reason Stop Dose Admin Alprazolam 0.5 mg 10/03/24 23:32 Alprazolam 0.5 Mg Tab PO Q6HR PRN Moderate Anxiety Alprazolam 0.25 mg 10/03/24 23:42 Alprazolam 0.25 Mg Tab PO Q6HR PRN Mild Anxiety Amitriptyline HCl 20 mg 10/02/24 21:00 10/03/24 20:35 Amitriptyline Hcl 10 Mg Tab PO 20 mg HS CYN Administration Aspirin 325 mg 10/05/24 09:00 Aspirin 325 Mg Tab PO DAILY CYN Atorvastatin Calcium 80 mg 10/05/24 21:00 Atorvastatin 80 Mg Tab PO HS CYN Clobetasol Propionate 1 applic 10/03/24 12:00 10/03/24 20:36 Clobetasol Prop 0.05% Cr 15gm TOPICAL Not Given BID [facility] Protocol Dapagliflozin 10 mg 10/02/24 09:00 10/03/24 08:50 Dapagliflozin Propanediol 10 Mg Tablet PO 10 mg DAILY CYN Administration Dextrose/Water 25 ml 10/02/24 06:42 Dextrose 50% Syringe 50 Ml IVP PER PROTOCOL PRN Hypoglycemia Protocol Dextrose/Water 50 ml 10/02/24 06:42 Dextrose 50% Syringe 50 Ml IVP PER PROTOCOL PRN Hypoglycemia Protocol Diphenhydramine HCl 50 mg 10/02/24 17:02 10/03/24 20:47 Diphenhydramine 25 Mg Cap PO 50 mg BID PRN Administration Itching Enoxaparin Sodium 40 mg 10/02/24 09:00 10/03/24 08:56 Enoxaparin 40 Mg/0.4 Ml Syringe SQ Not Given DAILY CYN Famotidine 40 mg 10/02/24 21:00 10/03/24 20:35 Famotidine 20 Mg Tab PO 40 mg HS CYN Administration Gabapentin 800 mg 10/02/24 16:00 10/03/24 20:33 Gabapentin 400 Mg Cap PO 800 mg TID CYN Administration Hydroxychloroquine Sulfate 200 mg 10/02/24 21:00 10/03/24 20:36 Hydroxychloroquine Sulfate 200 Mg Tab PO 200 mg BID CYN Administration Insulin Glargine 30 unit 10/02/24 21:00 10/03/24 20:33 Insulin Glargine (Lantus) 100 Unit/Ml Syr SQ 30 unit BID@0700,2100 CYN Administration Insulin Human Lispro 0 unit 10/02/24 07:30 10/03/24 20:47 Insulin Lispro (Humalog) 100 Unit/Ml 10 Ml Vl SQ 6 unit ACHS CYN Administration Protocol Levothyroxine Sodium 50 mcg 10/02/24 09:00 10/03/24 08:50 Levothyroxine 50 Mcg Tab PO 50 mcg DAILY CYN Administration Morphine Sulfate 4 mg 10/02/24 01:10 10/04/24 05:44 Morphine Sulfate 4 Mg/Ml Syringe IVP 4 mg Q4HR PRN Administration Severe Pain (Scale 7 to 10) Nitroglycerin 0.4 mg 10/03/24 23:32 Nitroglycerin Sl Tabs 0.4 Mg Tab SUBLINGUAL Q5M PRN Chest Pain Oxcarbazepine 150 mg 10/02/24 11:45 10/03/24 20:36 Oxcarbazepine 150 Mg Tab PO 150 mg BID CYN Administration Pantoprazole Sodium 40 mg 10/03/24 09:00 10/03/24 08:50 Pantoprazole 40 Mg Tablet PO 40 mg DAILY CYN Administration Pregabalin 150 mg 10/02/24 09:00 10/03/24 20:47 Pregabalin 75 Mg Cap PO 150 mg BID CYN Administration Ropinirole HCl 4 mg 10/02/24 21:00 10/03/24 20:35 Ropinirole Hcl 4 Mg Tablet PO 4 mg HS CYN Administration Topiramate 50 mg 10/02/24 11:45 10/03/24 20:34 Topiramate 25 Mg Tab PO 50 mg BID CYN Administration Trazodone HCl 100 mg 10/02/24 21:00 10/03/24 20:34 Trazodone Hcl 100 Mg Tab PO 100 mg HS CYN Administration Venlafaxine HCl 150 mg 10/02/24 11:45 10/03/24 08:50 Venlafaxine Hcl Er 150 Mg Cap PO 150 mg DAILY CYN Administration Intake and Output 10/03/24 10/04/24 10/04/24 22:59 06:59 14:59 Output Total 0 Balance 0 Output: Stool 0 Other: # Voids 2 10/01/24 23:17 10/01/24 23:17
[2024-10-04] MEDS: IOPAMIDOL-370 100ML BTL INJ ONE (08:22)
[2024-10-04] MEDS: SODIUM CHLORIDE 0.9% 1,000 ML IV SCH (09:09)
[2024-10-04] MEDS: EZETIMIBE 10 MG TAB PO SCH (10:35)
[2024-10-04 12:07] LABS: Glucose,Whole Blood 196 mg/dL (70-110)
--- NOTE | 2024-10-04 12:41 | P.DS ---
Providers Date of admission: 10/02/24 01:06 Expected date of discharge: 10/04/24 Attending physician: Danielle Kee MD Consults: 10/02/24 01:06 Consult Physician Urgent Consulting Provider: Jose Alejandro Ridley Consult Reason/Comments: chest pain Do you want consulting provider notified?: Yes 10/02/24 11:35 Consult Physician Routine Consulting Provider: Roxann Gonzalez Consult Reason/Comments: Syncope concerning for seizure Do you want consulting provider notified?: Yes Primary care physician: Stated None Hospital Course: 49 year old F with PMH DM, HLD, SLE, Anxiety/Bipolar/Depression presents to the ED for chest pain. She also reports nodding off and eventually passing out that has been upwards of 3 times a day, ongoing for the past 2 months. She denies any seizure like activity or tongue biting, bladder or bowel incontinence during this time. In the ED she underwent extensive evaluation. BP 137/85, HR 76, T 97.9F, RR 18, 99% on RA. Labs significant for APTT 20.5, Na 134, bicarb 19, glu 299, alk phos 152. Trop < 0.012 x 3. BNP 21. TSH 3.54. UDS + opiates. Patient was admitted for Cardiology and Neurology evaluation. Cardiology recommending Echo and stress test on Friday. Underwent cardiac cath on 10/04, negative. Neurology recommending EEG, MRI brain, CUS, Orthostats. MRI brain negative. Orthostats negative. CUS negative for stenosis. 10/04 Patient was seen and examined. Cardiac cath was negative, Cardio cleared for discharge. EEG is still pending. Discussed with Dr. Garcia, increase dose of Topamax. Discharge Plan: Discussed with Dr. Garcia, Topamax increased to 100 mg PO BID. Clobetasol topical cream prescribed for skin lesions, follow up with Dermatology outpatient. Cath was negative. Plans for discharge home after EEG results are back. Advised per [place] law, no driving or operating heavy machinery for 6 months until seizure free and cleared by Neurology. General: non toxic, no distress, appears at stated age Derm: warm, dry, ulcerative lesions on all 4 extremities, back and abdomen. Head: atraumatic, normocephalic, symmetric Eyes: EOMI, no lid lag, anicteric sclera Mouth: no lip lesion, mucus membranes moist Cardiovascular: good distal perfusion in all 4 extremities Lungs: breathing comfortably, no accessory muscle use Ext: no gross muscle atrophy, no edema, no contractures Neuro: no focal neuro deficits Psych: Alert and oriented. Discharge Diagnosis: Chest pain Syncope Cutaneous lupus erythematosus DM Hypothryoid HLD SLE Anxiety/Bipolar/Depression Peripheral neuropathy GERD RLS Insomnia This complex discharge took 35 minutes to complete. Patient Condition at Discharge: Stable Plan - Discharge Summary Discharge Rx Participant: Yes New Discharge Prescriptions: No Action traZODone HCL [Desyrel] 200 mg PO HS Pantoprazole Sodium [Protonix] 40 mg PO DAILY rOPINIRole HCL [Requip] 4 mg PO HS Atorvastatin [Lipitor] 80 mg PO HS Amitriptyline HCl [Elavil] 20 mg PO HS OXcarbazepine 150 mg PO BID Insulin Lispro [humaLOG Kwikpen] See Protocol SQ TID-W/MEALS Insulin Glargine,Hum.rec.anlog [Lantus Solostar Pen] 30 units SQ BID Gabapentin [Neurontin] 800 mg PO TID Empagliflozin [Jardiance] 25 mg PO DAILY Topiramate [Topamax] 50 mg PO BID Levothyroxine Sodium [Synthroid] 50 mcg PO DAILY Venlafaxine HCl [Effexor XR] 150 mg PO DAILY EPINEPHrine (Auto Inject) [Epipen] 0.3 mg IM ONCE PRN PRN Reason: Anaphylaxis Hydroxychloroquine Sulfate [Plaquenil] 200 mg PO BID Famotidine 40 mg PO HS metFORMIN HCL 1,000 mg PO BID Discharge Medication List traZODone HCL [Desyrel] 200 mg PO HS 07/08/15 [History] Empagliflozin [Jardiance] 25 mg PO DAILY 08/12/20 [History] Levothyroxine Sodium [Synthroid] 50 mcg PO DAILY 08/12/20 [History] Pantoprazole Sodium [Protonix] 40 mg PO DAILY 08/12/20 [History] Topiramate [Topamax] 50 mg PO BID 08/12/20 [History] Amitriptyline HCl [Elavil] 20 mg PO HS 10/02/24 [History] Atorvastatin [Lipitor] 80 mg PO HS 10/02/24 [History] EPINEPHrine (Auto Inject) [Epipen] 0.3 mg IM ONCE PRN 10/02/24 [History] Famotidine 40 mg PO HS 10/02/24 [History] Gabapentin [Neurontin] 800 mg PO TID 10/02/24 [History] Hydroxychloroquine Sulfate [Plaquenil] 200 mg PO BID 10/02/24 [History] Insulin Glargine,Hum.rec.anlog [Lantus Solostar Pen] 30 units SQ BID 10/02/24 [History] Insulin Lispro [humaLOG Kwikpen] See Protocol SQ TID-W/MEALS 10/02/24 [History] OXcarbazepine 150 mg PO BID 10/02/24 [History] Venlafaxine HCl [Effexor XR] 150 mg PO DAILY 10/02/24 [History] metFORMIN HCL 1,000 mg PO BID 10/02/24 [History] rOPINIRole HCL [Requip] 4 mg PO HS 10/02/24 [History] Follow up Appointment(s)/Referral(s): None,Stated [Primary Care Provider] - 1-2 days Discharge/Stand Alone Forms: [facility], [facility], Who Do I Call?, Community Resources
[2024-10-04 15:03] VITALS: BP 103/70; PULSE 77; RESP 17; TEMP 99.4
--- NOTE | 2024-10-04 15:47 | P.PN ---
Subjective Progress Note Date: 10/04/24 I am following-up with the patient and no further syncopal episodes. She has history of Migraine and is Topamax 50mg bid. She had cardiac cath today and she stated she was told it was normal. Orthostatic is negative. Objective - Vital Signs Vital signs: Vital Signs Temp 99.4 F 10/04/24 14:12 Pulse 77 10/04/24 14:12 Resp 17 10/04/24 14:12 BP 103/70 10/04/24 14:12 Pulse Ox 96 10/04/24 14:12 FiO2 Intake & Output 10/03/24 10/04/24 10/04/24 18:59 06:59 18:59 Intake Total 573 Output Total 0 0 Balance 0 0 573 Intake: IV 100 Oral 473 Output: Stool 0 0 Other: # Voids 2 - Exam GENERAL: The patient is lying in bed and is not in acute distress. NEUROLOGICAL: Higher mental function: The patient is awake, alert, oriented to self, place and time. Patient is following commands. No aphasia and no neglect. Cranial nerves: The pupils are round, equal and reactive to light and accommodation. Visual huang are full to confrontation throughout. Extraocular movement is intact no nystagmus is noted. Facial sensation is normal to touch throughout. The facial strength is normal throughout. Hearing is normal bilaterally to hand rub. Tongue is midline and moved [id number] without any difficulty. No dysarthria is noted. Shoulder shrug is normal bilaterally. Motor: The strength is 5 over 5 throughout. Normal tone and bulk. Cerebellum: Normal finger to nose heel to daly bilaterally. Sensation: Sensation is normal to touch throughout. Some of the work-up during this hospital visit consisted of: I reviewed the lab work-up EKG report: Sinus rhythm. Heart rate 71. MRI Brain: Unremarkable pre and postcontrast enhanced MRI Brain. Carotid duplex: No hemodynamically significant stenosis bilaterally. 2D echo: LVEF 55%. - Labs CBC & Chem 7: 10/01/24 23:17 10/01/24 23:17 Labs: Abnormal Lab Results - Last 24 Hours (Table) 10/03/24 10/03/24 10/04/24 Range/Units 17:26 20:35 05:47 POC Glucose (mg/dL) 254 H 236 H 291 H (70-110) mg/dL 10/04/24 Range/Units 12:02 POC Glucose (mg/dL) 196 H (70-110) mg/dL Assessment and Plan Assessment: Convulsive syncope episode. States had up to 3 episodes in a days, lasting for 1-2 minutes without tongue bite, urinary or bowel incontinence. Unsure exact etiology but not clear seizure. Unsure if soley cardiac etiology but so far all work-up is negative. Had MRI Brain is negative, carotid is no significant stenosis and today had cardiac cath and showed patent coronary arteries. Acute chest pain. History of Atrial flutter History of CHF History of lupus DM2 Hypercholestremia. Plan: Pending EEG which is schedule for today in afternoon. Patient was notified because of her syncopal spells per [place] DMV, even though no seizure, to avoid driving for 6 months until her last episode. To avoid swimmin g unassisted, avoid heavy machinery and heights. She is on Topamax 50mg bid and recommend going up to 100mg bid which has mirgraine benefit and has antiseizure benefit. Recommend the patient to follow-up with outpatient neurologist within 2-3 weeks and recommend a prolonged EEG as outpatient to capture these episode. Cardiology is on board. Will defer the rest of medical management to primary team and other specialist. The plan is discussed with patient, her via phone and primary team. If EEG is negative for seizure then patient is clear from my side. Time with Patient: Less than 30
--- NOTE | 2024-10-04 17:11 | EEG ---
ELECTROENCEPHALOGRAM REPORT CLINICAL HISTORY: This is a 49-year-old woman with convulsive syncopal episode. The video EEG is obtained to evaluate for seizure epileptiform activity. RELEVANT MEDICATIONS: Topamax and Lyrica. EEG TYPE: This is a routine 21-channel EEG with video using the 10/20 electrode placement system. DESCRIPTION: Wakefulness and drowsiness are obtained. During awake state, the posterior-dominant rhythm consists of [id number]-[id number] voltage of 9 hertz activity that is well modulated and well sustained. There is no physiological stage 2 sleep architecture. There is no focal slowing. Interictal and ictal is none. ACTIVATION PROCEDURE: Photic stimulation did not evoke a posterior driving response. There is no abnormality during the photic stimulation. Hyperventilation is not performed. CLINICAL INTERPRETATION: This is a normal routine EEG during awake, drowsy state. There is no focal slowing, epileptiform discharge, or seizure on the EEG. A normal routine EEG does not rule out underlying epilepsy. Clinical correlation is recommended. MMJOSE / SHWETAN: [id number] /
--- NOTE | 2024-10-04 17:38 | P.CARDCATH ---
Date of Procedure: 10/04/24 Description of Procedure: DIAGNOSTIC CORONARY ANGIOGRAPHY and LEFT HEART CATH REPORT PROCEDURES PERFORMED: Left heart catheterization Selective coronary angiography Moderate conscious sedation 13 mins [Ultrasound assisted] Right radial access INDICATION: Unstable angina BRIEF HPI: 49-year-old with history of type 2 diabetes poorly controlled, hypertriglyceridemia, dyslipidemia hypothyroidism, healthcare disparity with lack of transportation, poor social situation with financial constraints. She presents to the hospital because of substernal chest pressure-like symptoms which has been relapsing remitting but has been more persistent lately. She does carry a strong family history of CAD. Due to this she is very concerned and would like to get a cardiac catheterization done. I offered her alternative methods of doing a stress test with [facility] but she reports that she has had stress test in the past which has been negative and she cannot go to the nearest [facility] which is in [place] due to lack of transportation. CONSENT: I have explained the procedural steps of above-mentioned procedures in layman's terms to the patient. I discussed the risks (including but not limited to stroke, emergent vascular or cardiac surgery or ), benefits and alternative therapies for the above-mentioned procedure. I discussed the risks of sedation/analgesia and blood product administration (if indicated). The patient has indicated understanding and acceptance of these risks. Conscious Sedation: Patient's ECG, heart rate, blood pressure, pulse oximetry were monitored throughout the duration of procedure under my direct supervision. 1 mg Versed and [50] mcg Fentanyl were used for induction of moderate conscious sedation. Total duration of moderate concious sedation [25] minutes. PROCEDURAL DETAILS: Patient was prepped and draped in sterile fashion. 1% lidocaine was infiltrated over the right radial artery. Right radial access was obtained via modified seldinger technique. [Ultrasound was used for radial access]. Medications: 5mg of verapamil was administed in the radial sheet. 6000 Units of Heparin was administed once the catheter reached the aortic root Wires and Catheter used: J wire was advanced under fluroscopy to get to aortic root. 5 nauruan JR 4 diagnostic catheter was utilized obtain left ventricular pressure and pressure gradint across aortic valve. 5 nauruan JR 4 diagnostic catheter was used to selectively engage the right coronary ostium. 5 nauruan JL 3.5 diagnostic catheter was utilized to selectively engage the left coronary ostium. Angiographic images were reviewed in detail. Catheter and wire were removed. Radial sheet was flushed. The right radial sheath was removed and a TR band was placed. Patent hemostasis was achieved. The patient tolerated the procedure well. Patient was transported back to the post catheterization holding area in stable condition. TECHNICAL DETAILS Total radiation: 23 mGy Total contrast used: Isovue [60 ml] Complications: [none] Estimated Blood loss: less than 15 ml HEMODYNAMICS: Aortic Pressure: 110/70 mmHg. LV pressure: 110/2 mmHg. LVEDP 10 mmHg. There was no significant gradient across the aortic valve. SELECTIVE CORONARY ARTERIOGRAPHY: LEFT MAIN: The left main is short and large caliber vessel. It bifurcates into the LAD and circumflex. Left main appears angiographically normal. LEFT ANTERIOR DESCENDING CORONARY ARTERY: LAD patient is graphically patent. LEFT CIRCUMFLEX CORONARY ARTERY: LCx is nondominant, it appears angiographically patent. RIGHT CORONARY ARTERY: Dominant vessel. Large caliber, appears angiographically patent. Distally it gives rise to PDA PL branches. IMPRESSION: Angiographically patent coronary arteries Normal left ventricular filling pressure PLAN: Aggressive risk factor modification per most recent ACC/AHA guidelines. 125 cc fluids for 4 hours Discharge home in 4 hours Follow-up in the office in 1-2 weeks. Performing Physician En Leone MD, FACC, RPVI Thank you for allowing [facility] to participate in this patient's care. Feel free to reach out in case of any followup questions.
[2024-10-04] MEDS ORDERED: TOPIRAMATE 100 MG TAB PO SCH (21:00)
[2024-10-05] MEDS ORDERED: ASPIRIN 325 MG TAB PO SCH (09:00)
[2024-10-05] MEDS ORDERED: ATORVASTATIN 80 MG TAB PO SCH (21:00)
== END 2024-10-04 16:52 | disposition home or self-care (01) | DRG 313 ==
LOC: EC 22:12 → OBSVTOIN 10-02 01:06 → 6NMEDSUR 10-02 01:06
PROVIDERS: ADMIT Internal Medicine; ATTEND Internal Medicine
PROC: 4A00X4Z Measurement of Central Nervous Electrical Activity, External Approach (ICD-10-PCS; principal; 2024-10-04 11:00)
DX: R07.89 Other chest pain (principal); I11.0 Hypertensive heart disease with heart failure; I50.9 Heart failure, unspecified; E03.9 Hypothyroidism, unspecified; E11.42 Type 2 diabetes mellitus with diabetic polyneuropathy; E66.9 Obesity, unspecified; L93.2 Other local lupus erythematosus; R56.9 Unspecified convulsions; F31.9 Bipolar disorder, unspecified; G25.81 Restless legs syndrome; Z79.4 Long term (current) use of insulin; F41.9 Anxiety disorder, unspecified; G47.00 Insomnia, unspecified; Z79.890 Hormone replacement therapy; E78.1 Pure hyperglyceridemia; K21.9 Gastro-esophageal reflux disease without esophagitis; Z79.84 Long term (current) use of oral hypoglycemic drugs; Z79.899 Other long term (current) drug therapy; Z82.49 Family history of ischemic heart disease and other diseases of the circulatory system; Z98.84 Bariatric surgery status; Z96.653 Presence of artificial knee joint, bilateral; Z90.710 Acquired absence of both cervix and uterus; Z90.49 Acquired absence of other specified parts of digestive tract; Z98.51 Tubal ligation status; Z98.42 Cataract extraction status, left eye; Z98.41 Cataract extraction status, right eye; Z88.2 Allergy status to sulfonamides; Z88.6 Allergy status to analgesic agent; Z88.1 Allergy status to other antibiotic agents
CPT/HCPCS: 36415; 70553; 71046; 80053; 80061; 80306; 83036; 83721; 83735; 83880; 84443; 84484; 85025; 85610; 85730; 93005; 93306; 93880; 95816; 96374; 99285